=== PATIENT | male | born 1980 | race Caucasian/White ===

== ENCOUNTER → 2019-02-17 | Outpatient (CLI) | payer SELFPAY ==
[2019-02-17 10:05] LABS: Hematocrit 31.7 % (40-54); Hemoglobin 8.7 g/dl (13.0-16.5); Mean Corp Hgb Conc 27.4 g/gl (32-36); Mean Corpuscular Hgb 25.7 pg (27.0-32.0); Mean Corpuscular Volume 93.8 fL (80-94); Mean Platelet Vol. 10.4 fl (6.2-12.0); Platelet Count 157 K/mm3 (150-450); RBC Distribution Width CV 22.3 % (11.6-14.6); RBC Distribution Width SD 73.9 fl (35.1-43.9); Red Blood Count 3.38 M/mm3 (4.6-6.2); White Blood Count 3.3 K/mm3 (4.4-11.0)
[2019-02-17 10:06] LABS: Scan Indicated on CBC? Y/N YES- FLAGS NOTED
[2019-02-17 10:20] LABS: Differential Comment SCANNED
== END | disposition home or self-care (01) ==
LOC: MTLAB 08:00
DX: D50.9 Iron deficiency anemia, unspecified (principal); D51.0 Vitamin B12 deficiency anemia due to intrinsic factor deficiency
CPT/HCPCS: 36415; 85027

== ENCOUNTER 2019-03-25 09:30 | Outpatient (RCR) | payer SELFPAY ==
[2019-03-25 12:17] LABS: Iron 9 ug/dL (65-175)
[2019-03-25 14:34] LABS: Hematocrit 15.4 % (40-54); Mean Corp Hgb Conc 24.7 g/dL (32-36); Mean Corpuscular Hgb 19.8 pg (27.0-32.0); Mean Corpuscular Volume 80.2 fL (80-94); Mean Platelet Vol. 11.8 fl (6.2-12.0); POSITIVE COUNT YES; Platelet Count 112 K/mm3 (150-450); RBC Distribution Width CV 19.9 % (11.6-14.6); RBC Distribution Width SD 58.3 fl (35.1-43.9); Red Blood Count 1.92 M/mm3 (4.6-6.2); White Blood Count 3.1 K/mm3 (4.4-11.0)
[2019-03-25 14:46] LABS: Hemoglobin 3.8 g/dL (13.0-16.5)
[2019-03-25 15:21] LABS: Scan Indicated on CBC? Y/N YES- FLAGS NOTED
[2019-03-25 15:25] LABS: Differential Comment SCANNED
[2019-03-26 09:40] LABS: Pathologist Review Reviewed
== END 2019-04-07 06:40 | disposition home or self-care (01) ==
LOC: MTLAB 09:30
DX: E61.1 Iron deficiency (principal); K90.89 Other intestinal malabsorption
CPT/HCPCS: 36415; 83540; 85027

== ENCOUNTER 2019-04-14 09:52 | Outpatient (RCR) | payer SELFPAY ==
[2019-04-14 12:30] LABS: Hematocrit 24.5 % (40-54); Hemoglobin 5.9 g/dL (13.0-16.5); Mean Corp Hgb Conc 24.1 g/dL (32-36); Mean Corpuscular Hgb 24.6 pg (27.0-32.0); Mean Corpuscular Volume 102.1 fL (80-94); POSITIVE COUNT YES; POSITIVE MORPHOLOGY YES; Platelet Count 99 K/mm3 (150-450); White Blood Count 4.7 K/mm3 (4.4-11.0)
[2019-04-14 12:38] LABS: Scan Indicated on CBC? Y/N YES- FLAGS NOTED
[2019-04-14 13:00] LABS: Iron 114 ug/dL (65-175)
[2019-04-14 14:26] LABS: Pathologist Review Reviewed
== END 2019-04-14 10:52 | disposition home or self-care (01) ==
LOC: MTLAB 09:52
DX: E61.1 Iron deficiency (principal); K90.89 Other intestinal malabsorption
CPT/HCPCS: 36415; 83540; 85027

== ENCOUNTER → 2019-05-03 | Outpatient (CLI) | payer SELFPAY ==
[2019-05-03 13:54] LABS: Hematocrit 30.2 % (40-54); Hemoglobin 8.3 g/dL (13.0-16.5)
[2019-05-03 14:09] LABS: Vitamin B12 358 pg/mL (211-911)
== END | disposition home or self-care (01) ==
LOC: MTLAB 12:18
PROVIDERS: Family Medicine
DX: D50.9 Iron deficiency anemia, unspecified (principal); D51.0 Vitamin B12 deficiency anemia due to intrinsic factor deficiency
CPT/HCPCS: 36415; 82607; 85014; 85018

== ENCOUNTER → 2019-07-22 | Outpatient (CLI) | payer OTHER, SELFPAY ==
[2019-07-22 14:28] LABS: Absolute Lymphocyte Count 0.56 X10^3/uL (0.83-4.51); Absolute Neutrophil Count 3.4 X10^3/uL (2.0-7.7); Basophil# 0.03 X10^3/uL; Basophil% 0.6 % (0-1); Eosinophil# 0.29 X10^3/uL; Eosinophils% 5.9 % (0-5); Hematocrit 28.9 % (40-54); Hemoglobin 7.6 g/dL (13.0-16.5); Lymphocyte # 0.56 X10^3/ul (4.0); Lymphocyte % 11.4 % (19-41); Mean Corp Hgb Conc 26.3 g/dL (32-36); Mean Corpuscular Hgb 22.7 pg (27.0-32.0); Mean Corpuscular Volume 86.3 fL (80-94); Monocyte# 0.56 X10^3/uL; Monocyte% 11.4 % (0-10); NRBC Flagged by Analyzer 0 % (0-5); Neutrophil # 3.42 X10^3/uL (2.7-7.7); Neutrophil % 69.9 % (47-70); POSITIVE COUNT YES; POSITIVE DIFFERENTIAL YES; Platelet Count 83 K/mm3 (150-450); RBC Distribution Width CV 19.6 % (11.6-14.6); RBC Distribution Width SD 62.1 fl (35.1-43.9); Red Blood Count 3.35 M/mm3 (4.6-6.2); White Blood Count 4.9 K/mm3 (4.4-11.0)
[2019-07-22 14:39] LABS: Differential Indicated SCAN CRITERIA MET
[2019-07-22 15:11] LABS: Vitamin B12 380 pg/mL (211-911)
== END | disposition home or self-care (01) ==
LOC: MTLAB 12:07
PROVIDERS: Family Medicine
DX: D50.9 Iron deficiency anemia, unspecified (principal)
CPT/HCPCS: 36415; 82607; 85025

== ENCOUNTER 2020-03-23 14:04 | Inpatient (IN) | payer MEDICAID, SELFPAY ==
[2019-10-12 13:28] VITALS: BMI 16.5
[2020-03-23] VITALS (12 sets, daily range): BP systolic 89–112; BP diastolic 44–83; PULSE 75–85; RESP 16–20; TEMP 36.5–36.9; O2SAT 99–100; BMI 16.3; BMI 15.6
--- NOTE | 2020-03-23 14:29 | EKG12_ITS ---
Test Reason : Blood Pressure : / mmHG Vent. Rate : 076 BPM Atrial Rate : 076 BPM P-R Int : 162 ms QRS Dur : 102 ms QT Int : 408 ms P-R-T Axes : 068 070 058 degrees QTc Int : 459 ms Normal sinus rhythm Minimal voltage criteria for LVH, may be normal variant Borderline ECG Confirmed by KACI PASCAL, ELIO ([id number]), editor farm journal EVELYNE ELLIOTT ([id number]) on 03/27/2020 11:00:02 AM Referred By: MAITE Confirmed By:ELIO CLEMONS MD
--- NOTE | 2020-03-23 14:41 | ED.VIS.GEN ---
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 He just recently moved back from [facility]. He was recently just discharged from the hospital down there for a MSSA staph infection. He recently had his PICC line taken out and completed his antibiotic course. He had a significant drop in his weight and sounds like he was not taking care of himself at home. He dropped from 135 pounds to around 100 pounds. He is currently denying any fevers chills. He has not had any chest pain. Denies any abdominal pain or nausea/vomiting. He has had an increase in his diarrhea. He does have diarrhea at baseline but has been pretty constant. Denies any black tarry stools or blood in the stool. He is concerned that he is anemic. He felt like he did whenever he was last admitted whenever he had a metabolic acidosis and was anemic with a hemoglobin of 3. Past Medical History - Allergies and Home Meds Allergies/Adverse Reactions: Allergies erythromycin base Adverse Reaction (Severe, Verified 03/23/20 14:07) Vomiting Macrolide Antibiotics Adverse Reaction (Severe, Verified 03/23/20 14:07) Vomiting ALL ORAL ANTIBIOTICS Allergy (Uncoded 03/23/20 14:08) NEEDS FOLLOW-UP VIT K Allergy (Uncoded 03/23/20 14:08) Chest tightness Prior records reviewed: Yes Past Medical History: - - Gastroschisis, short bowel syndrome thyroidism, history of iron deficiency anemia Surgical History: - - Small bowel resection, debridement of previous staph infections Smoking Status: Never smoker Review of Systems General: Reports: Malaise, Weight loss. Denies: Chills, Fever, Sweats Eyes: Denies: Visual changes - bilaterally, Diplopia ENT: Denies: Rhinorrhea, Sore throat Cardiovascular: Denies: Chest pain, Palpitations Respiratory: Reports: Dyspnea, Dyspnea on exertion. Denies: Cough Gastrointestinal: Reports: Diarrhea. Denies: Abdominal pain, Nausea, Vomiting, Melena, Hematochezia Genitourinary: Denies: Dysuria, Hematuria, Frequency Musculoskeletal: Denies: Back pain, Extremity Pain Skin: Denies: Rash, Wounds Neurological: Reports: Weakness - Generalized. Denies: Headache, Numbness Physical Exam Vital Signs/Narrative: Vital Signs Temp Pulse Resp BP Pulse Ox 03/23/20 14:05 98 F 85 16 107/67 100 Inital Vital Signs reviewed: No General: Well nourished, Cachectic, No Acute Distress Head: Normocephalic, Atraumatic Eyes: Perrl, EOMI ENT: No rhinorrhea, Dry mucous membranes Neck: Supple, Nontender Cardiovascular: Regular rate, Regular rhythm, No murmurs Respiratory: No distress, CTA bilaterally, Chest nontender Abdomen: Soft, Nontender, Nondistended, Normal bowel sounds Back: Nontender, Normal Inspection Extremities: Nontender, No edema Skin: No rash, - - Patient has many well-healed incisions, on the upper extremities, lower extremities and left buttock. Sutures still in place on the right upper extremity site. Neurological: Alert, Oriented x3, Cranial nerves II-XII grossly intact, Normal Strength, Normal Sensation Psychological: Normal affect, Normal Mood Diagnostic/Tx/Re-eval - EKG Initial EKG Interpretation: - - Rate of 76 bpm in sinus rhythm. Normal intervals. Normal axis. No ST elevations or depressions appreciated. No T wave abnormalities. Prior EKG for comparison was performed on February 092011. - Medical Decision Making Patient presents emerged department for shortness of breath and weakness. He does have complicated past medical history. He is concerned that his kidneys may be shutting down or that he is anemic based on how he is feeling. He denies any fevers or chills. He did recently get over a staph infection but completed the antibiotic course. Vital signs upon arrival are within normal limits. Does not appear in any acute distress. Will check basic lab at this time. Patient not more anemic than he has been before in the past. His CO2 was 7. Did check an ABG at that time which showed a pH of 7.17 with a bicarb of 3.6. We will start him on a bicarb drip at this time. I discussed the patient with the hospitalist and we will plan on ICU admission at this time. He otherwise has been stable throughout ED stay. Patient understands and is agreeable with this plan. ED Disposition - Plan for ED Patient: Disposition: Acute Care Hospital [facility] Diagnosis: Diarrhea, Metabolic acidosis
[2020-03-23 15:05] LABS: Absolute Lymphocyte Count 0.75 X10^3/uL (0.83-4.51); Absolute Neutrophil Count 4.8 X10^3/uL (2.0-7.7); Basophil# 0.05 X10^3/uL; Basophil% 0.7 % (0-1); Eosinophil# 0.32 X10^3/uL; Eosinophils% 4.7 % (0-5); Hematocrit 29.5 % (40-54); Hemoglobin 9.5 g/dL (13.0-16.5); Lymphocyte # 0.75 X10^3/ul (4.0); Lymphocyte % 10.9 % (19-41); Mean Corp Hgb Conc 32.2 g/dL (32-36); Mean Corpuscular Hgb 29.9 pg (27.0-32.0); Mean Corpuscular Volume 92.8 fL (80-94); Mean Platelet Vol. 9.5 fl (6.2-12.0); Monocyte# 0.83 X10^3/uL; Monocyte% 12.1 % (0-10); NRBC Flagged by Analyzer 0 % (0-5); Neutrophil # 4.77 X10^3/uL (2.7-7.7); Neutrophil % 69.7 % (47-70); Platelet Count 117 K/mm3 (150-450); RBC Distribution Width CV 16.7 % (11.6-14.6); RBC Distribution Width SD 56.9 fl (35.1-43.9); Red Blood Count 3.18 M/mm3 (4.6-6.2); White Blood Count 6.9 K/mm3 (4.4-11.0)
--- NOTE | 2020-03-23 15:25 | RAD_ITS ---
STUDY: X-RAY CHEST REASON FOR EXAM: Male, 40 years old. Shortness of breath, diarrhea. TECHNIQUE: Frontal and lateral views of the chest. COMPARISON: None. FINDINGS: The lungs are clear and expanded. There is no demonstrated pleural abnormality. Normal size heart. Normal mediastinum and romie. Normal visualized pulmonary arteries. Normal visualized aortic arch and descending thoracic aorta. Normal visualized thoracic spine. Normal visualized ribs, clavicles, and shoulders. There are distended loops of bowel incompletely seen in the upper abdomen. Findings could represent ileus or obstruction. RAD/Chest PA and Lateral IMPRESSION: Normal x-ray examination of the chest. Electronically Signed: Se Kearns MD at 16:05 EDT , Service support ,
[2020-03-23 15:53] LABS: AST(SGOT) 42 U/L (15-37); Alanine Aminotransfer ALT/SGPT 41 U/L (16-61); Albumin, Serum 3.2 g/dL (3.2-5.0); Alkaline Phosphatase 169 U/L (45-117); Anion Gap 13 (5-15); BUN 91 mg/dL (7-18); BUN/Creat Ratio 55.5 RATIO (10-20); Bilirubin, Direct 0.16 mg/dL (0.00-0.30); Calcium,Total 7.9 mg/dL (8.5-10.1); Chloride 117 mmol/L (98-107); Creatinine, Serum 1.64 mg/dL (0.70-1.30); EST Glomerular Filtration Rate 50 mL/min (>60); Est Glom Filt Rate - Afr Amer 60 mL/min (>60); Estimated Creatinine Clearance 44.23 ml/min; Glucose 90 mg/dL (74-106); Magnesium 1.2 mg/dL (1.6-2.6); Phosphorus 4.9 mg/dL (2.5-4.9); Potassium 3.3 mmol/L (3.5-5.1); Protein, Total 8.2 g/dL (6.4-8.2); Sodium Level 137 mmol/L (136-145)
--- NOTE | 2020-03-23 16:12 | HP.PCM_ITS ---
History of Present Illness Date of Admission: 03/23/20 Chief Complaint: diarrhea The patient is a 40 year old M with a PMH of gastroschisis in childhood, with bowel resection, and short bowel syndrome, as well as recent history of MRSA skin infections, requiring IV cefazolin for ~ 30 days. He was treated in [facility], and subsequently came back to [place] with his parents 2 days ago. He subsequently started having diarrhea and it has been gradually worsening. He has had no fever, chills, nausea or vomiting. He has however been getting progressively weak, and has had previous episodes of metabolic acidosis where he required drip. He is currently supposed to be on bicarb pills per his real estate investment analyst, but has not been compliant. REview of systems was otherwise negative. In the ED, vitals showed temp of 98F, with BP of 107/67, WI of 85 and RR of 16. He was saturating at 100% on room air. Labs shwoed bicarb of 7, anion gap of 13, potassium of 3.3, sodium of 137 and Cr of 1.64. initial troponin was negative. CBC showed Hb of 9.5, wbc of 6.9, and platelets of 117. ABG was pending. He is being admitted and manaaged for acute metabolic acidosis due to severe diarrhea from showrt bowel syndrome. [] Past Medical History Past Medical History (Chronic Problems): Chronic Problems (Last Updated 09/29/19 @ 08:29 by Cintia Ramos) Anemia (Chronic) Hypothyroidism (Chronic) Gastroschisis (Chronic) Iron deficiency (Chronic) Short bowel syndrome (Chronic) B12 deficiency anemia (Chronic) Thrombocytopenia (Chronic) Postresectional malabsorption syndrome (Chronic) Chronic GI bleeding (Chronic) Medical History: Medical History (Last Updated 09/29/19 @ 08:29 by Cintia Ramos) B12 deficiency anemia D51.9 Gastroschisis Q79.3 Iron deficiency anemia D50.9 Short bowel syndrome K91.2 Allergies erythromycin base Adverse Reaction (Severe, Verified 03/23/20 14:07) Vomiting Macrolide Antibiotics Adverse Reaction (Severe, Verified 03/23/20 14:07) Vomiting ALL ORAL ANTIBIOTICS Allergy (Uncoded 03/23/20 14:08) NEEDS FOLLOW-UP VIT K Allergy (Uncoded 03/23/20 14:08) Chest tightness Home Medications: Ambulatory Orders Medication Instructions Recorded Ferric Carboxymaltose [Injectafer] 750 mg IV UD 09/23/19 Levothyroxine Sodium [Unithroid] 75 mcg PO DAILY 09/23/19 Folic Acid 1 mg PO DAILY 09/28/19 Torsemide 60 mg PO BID 03/23/20 Surgical History: Surgical History (Last Reviewed 09/28/19 @ 10:11 by Cintia Ramos) History of abdominal surgery Z98.890 For Gastrochesis as a child [facility] Surgical History: - - Small bowel resection, debridement of previous staph infections Lives: With Family Smoking Status: Never smoker Alcohol: None Drugs: None - *Family History Maternal Family History: Family History (Last Updated 09/28/19 @ 10:11 by Cintia Ramos) Other No pertinent family history Review of Systems Constitutional: Reports: Anorexia, Malaise, Weakness, Fatigue Eyes: Denies: Blurred vision HEENT: Denies: Head Aches, Sinus Congestion, Sinus Drainage Cardiovascular: Denies: Chest Pain, Chest Pressure, Chest Tightness, Palpitations Respiratory: Denies: Cough, Shortness of Breath, Shortness of breath at rest, Shortness of breath upon exertion, Sputum production Gastrointestinal: Reports: Diarrhea. Denies: Abdominal Pain, Nausea, Vomiting Genitourinary: Denies: Dysuria Musculoskeletal: Denies: Joint Pain, Joint Tenderness Skin: Denies: Rash, Wounds Neurological: Denies: Numbness, Tingling, Focal weakness Psychiatric: Denies: Anxiety, Depression, Homicidal Ideations, Suicidal Ideations Hematologic/ Lymphatic: Denies: Easy Bruising, Easy Bleeding VTE Information - Inpt Only VTE Present on Admission: No VTE Pharm Prophylaxis ordered?: Yes Patient Problems: Active and Suspected Problems (Last Updated 09/29/19 @ 08:29 by Cintia Ramos) Diarrhea (Acute) Metabolic acidosis (Acute) - Physical Exam Vitals/I&O's: Vital Signs Temp Pulse Resp BP Pulse Ox 98 F 85 16 107/67 100 03/23/20 15:18 03/23/20 15:18 03/23/20 15:18 03/23/20 15:18 03/23/20 15:18 Oxygen Delivery Method Room Air Weight: 114 lb Body Mass Index (BMI) 16.3 General: Alert, Oriented x3, Cooperative, No apparent distress, Lethargic HEENT: Atraumatic, PERRLA, EOMI, Normocephalic Oral: Dry Mucosa Neck: Supple, No JVD, Negative Carotid Bruits Lungs: Clear to auscultation, Normal air movement, No rhonchi, No wheeze, No rales Cardiovascular: Regular rate, Regular Rhythm, Normal S1, Normal S2, No murmurs Abdomen: Bowel Sounds Present, Soft, Non Tender, Non-Distended Extremities: No clubbing, No cyanosis, No edema, Capillary Refill Less than 3 Seconds Skin: No rashes, No breakdown Musculoskeletal: No Tenderness to Palpation of Joints or Extremities Lymphatic: No Cervical, Supraclavicular, or Inguinal Adenopathy Neurological: Cranial nerves II-XII grossly intact, Neuro grossly intact, Motor Exam 5/5 strength throughout Psych/Mental Status: Normal Affect, Appropriate, Alert and oriented to time, place, person, mood and affect Laboratory Results 03/23/20 14:50: WBC 6.9, RBC 3.18 L, Hgb 9.5 L, Hct 29.5 L, MCV 92.8, MCH 29.9, MCHC 32.2, RDW Std Deviation 56.9 H, RDW Coeff of Emil 16.7 H, Plt Count 117 L, MPV 9.5, Immature Gran % (Auto) 1.900 H, Neut % (Auto) 69.7, Lymph % (Auto) 10.9 L, [place] % (Auto) 12.1 H, Eos % (Auto) 4.7, Baso % (Auto) 0.7, Absolute Neuts (auto) 4.8, Absolute Lymphs (auto) 0.75 L, Nucleated RBC % 0 03/23/20 14:50: Sodium 137, Potassium 3.3 L, Chloride 117 H, Carbon Dioxide 7.0 L*, Anion Gap 13, BUN 91 H, Creatinine 1.64 H, Estim Creat Clear Calc 44.23, Est GFR (MDRD) Af Amer 60, Est GFR (MDRD) Non-Af 50 L, BUN/Creatinine Ratio 55.5 H, Glucose 90, Calcium 7.9 L, Phosphorus 4.9, Magnesium 1.2 L, Total Bilirubin 0.40, Direct Bilirubin 0.16, AST 42 H, ALT 41, Alkaline Phosphatase 169 H, Troponin I < 0.015, Total Protein 8.2, Albumin 3.2, Globulin 5.0 H 03/23/20 14:50: Blood Type Pending, Antibody Screen Pending Diagnostic Data Chest X-Ray 03/23/20 15:25 IMPRESSION: Normal x-ray examination of the chest. Electronically Signed: Se Kearns MD at 16:05 EDT , Service support , Assessment/Plan All Active Problems (Last Updated 09/29/19 @ 08:29 by Cintia Ramos) Diarrhea (Acute) Metabolic acidosis (Acute) 40 y/o admitted with a complaint of diarrhea and lethargy 1. Acute non anion gap metabolic acidosis due to diarrhea * admit to ICU * bicarb is 7, with anion gap of 13; patient has concomitant respiratory alkalosis as well. * ahs been having profuse diarrhea; has recently been on antibiotics, so C DIff needs to be ruled out * hydrate aggressively with IVF * start bicarb drip * ABG showed ph of 7.17, with pCO2 of 9.9 and bcarb of 3.6, * 2. Severe diarrhea due to short gut syndrome * Recently on IV cefazolin for about a month because of MSSA skin infection. * Will check C. difficile. Continue hydrating with IV fluid. If C. difficile comes back negative, then will consider loperamide * 3.Hypokalemia and hypomagnesemia * K is 3.3 and Mg is 1.2 * will replace and monitor * 4. Anemia: Hb is 9.5. will monitor for now. This is actually higher than his baseline of ~ 7-8. 5. History of gastroschisis with short gut syndrome: as under 2' DVT prophylaxis: SCDs Code status: full code * Patient and mother counseled extensively about different types of CODE STATUS including full code, DNR CCA and DNR CCA. Mother elects for patient to be full code. * Total [id number] time 16 minutes. Inpatient E&M: 60933 Init Hosp L3 Procedures: 11594 Critial Care 1st Hr - advanced care planning first 30 mins [id number]
[2020-03-23 16:31] LABS: Bacteria 0 SEEN /hpf (None Seen); Mucous, Urine 0 SEEN /hpf (<or=2+)
--- NOTE | 2020-03-23 16:51 | CPS ---
Critical pH, PCO2, HCO3- and TCO2 results given to Dr. Velazquez. Dr Velazquez personally relayed results to Dr Mansfield. 03-23-20 @ 3410.
[2020-03-23 16:53] LABS: Color, Urine Yellow (Yellow); Glucose, Dipstick Normal (Normal); Ketone-Dipstick Negative (Negative); Leukocyte Esterase-Dipstick Negative /ul (Negative); Nitrite-Dipstick Negative (Negative); Occult Blood-Urine 250 /ul (Negative); Protein-Dipstick 100 mg/dl (Negative); Urine Bilirubin Dipstick Negative (Negative); Urine Clarity Sl. Cloudy (Clear); Urine Urobilinogen Normal (Normal)
[2020-03-23 17:10] LABS: Hyaline Cast 0-5 SEEN /lpf (0-5); Squamous Epithelial Cells - UA 0-5 SEEN /hpf (0-5)
[2020-03-23 17:11] LABS: Fine Granular Cast- Urine 0-5 SEEN /lpf (0-5)
[2020-03-23 17:13] LABS: Amorphous Sediment 2+; Red Blood Cells-Urine 10-25 SEEN /hpf (0-5); White Blood Cells 0-5 SEEN /hpf (0-5)
[2020-03-23 17:36] LABS: Base Excess -25 mmol/L (-2 to +2); Bicarbonate 3.6 mmol/L (22-26); PO2 136 mmHG (75-100); SO2 98 % (95-99); Total Carbon Dioxide < 5 mmol/L; pH 7.17 (7.35-7.45)
[2020-03-23 17:39] LABS: Blood Gas Specimen Type ART; SITE L BRACHIAL
[2020-03-23 17:40] LABS: O2 Delivery Device Room Air; pCO2 9.9 mmHg (35-45)
[2020-03-23] MEDS: 0.9% Normal Saline 1,000 ML 125 ML IV (19:39)
--- NOTE | 2020-03-23 19:45 | NURSING ---
attempted to start another iv but pt refuses at this time. i attempted to check pt skin on admission but pt refuses to take his pants off. Pt c/o feeling cold. heat turn to max and warm blankets given. Attempted 30 min later and pt still refuses to have remove pants
[2020-03-23] MEDS: Potassium Chloride 10mEq/100mL 10 MEQ/100 ML IV.SOLN. 100 MEQ IV BOLUS ×4 (20:06→23:02)
[2020-03-23] MEDS: Magnesium Sulfate 4gm/100mL 4 GM/100 ML IV.SOLN. IV (21:12)
[2020-03-23 21:41] LABS: Anion Gap 14 (5-15); BUN 93 mg/dL (7-18); BUN/Creat Ratio 59.6 RATIO (10-20); Calcium,Total 7.4 mg/dL (8.5-10.1); Chloride 121 mmol/L (98-107); Creatinine, Serum 1.56 mg/dL (0.70-1.30); EST Glomerular Filtration Rate 53 mL/min (>60); Est Glom Filt Rate - Afr Amer 64 mL/min (>60); Estimated Creatinine Clearance 40.73 ml/min; Glucose 114 mg/dL (74-106); Phosphorus 5.1 mg/dL (2.5-4.9); Potassium 2.6 mmol/L (3.5-5.1); Sodium Level 142 mmol/L (136-145)
[2020-03-24] VITALS (26 sets, daily range): BP systolic 95–115; BP diastolic 54–78; PULSE 64–88; RESP 13–22; TEMP 36.4–37.1; O2SAT 98–100
[2020-03-24] MEDS: Potassium Chloride 10mEq/100mL 10 MEQ/100 ML IV.SOLN. 100 MEQ IV BOLUS ×8 (00:06→18:46)
[2020-03-24] MEDS: 0.9% Normal Saline 1,000 ML 125 ML IV (03:39)
[2020-03-24 03:51] LABS: Absolute Lymphocyte Count 0.53 X10^3/uL (0.83-4.51); Absolute Neutrophil Count 2.1 X10^3/uL (2.0-7.7); Basophil# 0.02 X10^3/uL; Basophil% 0.6 % (0-1); Eosinophil# 0.22 X10^3/uL; Eosinophils% 6.4 % (0-5); Hematocrit 18.7 % (40-54); Hemoglobin 6.4 g/dL (13.0-16.5); Lymphocyte # 0.53 X10^3/ul (4.0); Lymphocyte % 15.3 % (19-41); Mean Corp Hgb Conc 34.2 g/dL (32-36); Mean Corpuscular Hgb 30.5 pg (27.0-32.0); Mean Platelet Vol. 9.7 fl (6.2-12.0); Monocyte# 0.56 X10^3/uL; Monocyte% 16.2 % (0-10); NRBC Flagged by Analyzer 0 % (0-5); Neutrophil # 2.09 X10^3/uL (2.7-7.7); Neutrophil % 60.3 % (47-70); POSITIVE DIFFERENTIAL YES; Platelet Count 110 K/mm3 (150-450); RBC Distribution Width CV 16.3 % (11.6-14.6); RBC Distribution Width SD 53.1 fl (35.1-43.9); White Blood Count 3.5 K/mm3 (4.4-11.0)
[2020-03-24 04:40] LABS: Differential Indicated SCAN CRITERIA MET
[2020-03-24 04:42] LABS: Anion Gap 11 (5-15); BUN 83 mg/dL (7-18); Calcium,Total 7.3 mg/dL (8.5-10.1); Chloride 119 mmol/L (98-107); Creatinine, Serum 1.43 mg/dL (0.70-1.30); EST Glomerular Filtration Rate 59 mL/min (>60); Est Glom Filt Rate - Afr Amer 71 mL/min (>60); Estimated Creatinine Clearance 44.44 ml/min; Glucose 88 mg/dL (74-106); Magnesium 2.7 mg/dL (1.6-2.6); Phosphorus 4.3 mg/dL (2.5-4.9); Potassium 2.7 mmol/L (3.5-5.1); Sodium Level 138 mmol/L (136-145)
[2020-03-24] MEDS: Sodium Bicarbonate 8.4% 50 ML Syringe 50 MEQ IV (05:20)
[2020-03-24 05:29] LABS: Differential Comment SCANNED
--- NOTE | 2020-03-24 06:21 | PCM.CON.CC ---
Reason for Consult Date of Consultation: 03/24/20 Reason for Consultation: Metabolic acidosis History of Present Illness: The patient is a 40-year-old male, with a history as outlined below, who presented to the emergency department with generalized malaise, weakness and shortness of breath. Although the patient initially resided in [facility], he has lived in [place] for the last 15 years. He recently relocated back here 2 days ago. Prior to moving back to [place], the patient reported that he was hospitalized in both [place] in [place] for a total of 30 days recently due to staph bacteremia, requiring a prolonged antibiotic course. The patient has a complex medical history including gastroschisis, which required surgical repair leading to short bowel syndrome. The patient reports that he has been dealing with nutritional deficiencies most of his life. He states that he was previously receiving IV iron supplementation. He denies any abdominal pain, nausea or vomiting. He denies hematochezia, hematemesis or melena. On presentation to the emergency department, the patient was noted to be afebrile and hemodynamically stable. He was maintaining appropriate oxygen saturations on room air. Laboratory evaluation revealed a normal white blood cell count. Hemoglobin was initially noted to be 9.5 g/dL. The patient was thrombocytopenic with a platelet count of 117,000. Chemistry profile was notable for a potassium of 3.3, chloride of 117, bicarbonate of 7.0 and creatinine of 1.64. Magnesium was low at 1.2. Troponin was negative. Initial plain film chest x-ray revealed no acute cardiopulmonary process. The patient was placed in isolation for C. difficile rule out. Electrolyte repletion was undertaken. The patient received supplemental IV fluids and bicarbonate replacement. Overnight, the patient has remained afebrile and hemodynamically stable. He reports feeling hungry this morning and is interested in ordering a breakfast. Past Medical History Past Medical History (Chronic Problems): Chronic Problems (Last Updated 09/29/19 @ 08:29 by Cintia Ramos) Anemia (Chronic) Hypothyroidism (Chronic) Gastroschisis (Chronic) Iron deficiency (Chronic) Short bowel syndrome (Chronic) B12 deficiency anemia (Chronic) Thrombocytopenia (Chronic) Postresectional malabsorption syndrome (Chronic) Chronic GI bleeding (Chronic) Medical History: Medical History (Last Updated 09/29/19 @ 08:29 by Cintia Ramos) B12 deficiency anemia D51.9 Gastroschisis Q79.3 Iron deficiency anemia D50.9 Short bowel syndrome K91.2 Allergies erythromycin base Adverse Reaction (Severe, Verified 03/23/20 14:07) Vomiting Macrolide Antibiotics Adverse Reaction (Severe, Verified 03/23/20 14:07) Vomiting ALL ORAL ANTIBIOTICS Allergy (Uncoded 03/23/20 14:08) NEEDS FOLLOW-UP VIT K Allergy (Uncoded 03/23/20 14:08) Chest tightness Home Medications: Ambulatory Orders Medication Instructions Recorded Ferric Carboxymaltose [Injectafer] 750 mg IV UD 09/23/19 Levothyroxine Sodium [Unithroid] 75 mcg PO DAILY 09/23/19 Folic Acid 1 mg PO DAILY 09/28/19 Torsemide 60 mg PO BID 03/23/20 Surgical History: Surgical History (Last Reviewed 09/28/19 @ 10:11 by Cintia Ramos) History of abdominal surgery Z98.890 For Gastrochesis as a child [facility] History: - - Small bowel resection, debridement of previous staph infections Lives: With Family Smoking Status: Never smoker Alcohol: None Drugs: None - *Family History Maternal Family History: Family History (Last Updated 09/28/19 @ 10:11 by Cintia Ramos) Other No pertinent family history Review of Systems Constitutional: Reports: Malaise, Weakness. Denies: Chills, Fever Eyes: Denies: Blurred vision, Double vision HEENT: Denies: Head Aches, Sinus Congestion, Sinus Drainage Cardiovascular: Denies: Chest Pain, Palpitations Respiratory: Reports: Shortness of Breath. Denies: Cough, Sputum production, Wheezing Gastrointestinal: Reports: Diarrhea. Denies: Abdominal Pain, Nausea, Vomiting Genitourinary: Denies: Dysuria Musculoskeletal: Denies: Joint Pain, Joint Tenderness Skin: Reports: Wounds - Healing wounds present on extremities Neurological: Denies: Numbness, Tingling, Focal weakness Psychiatric: Denies: Anxiety, Depression, Homicidal Ideations, Suicidal Ideations Hematologic/ Lymphatic: Reports: Anemia, Hx of blood transfusion Patient Problems: Active and Suspected Problems (Last Updated 09/29/19 @ 08:29 by Cintia Ramos) Diarrhea (Acute) Metabolic acidosis (Acute) Objective: The patient's most recent lab work, culture data and imaging studies have all been personally reviewed. C. difficile was negative. Enteric panel is pending. - Physical Exam Vitals/I&O's: Vital Signs Temp Pulse Resp BP Pulse Ox 98.8 F 75 17 98/60 100 03/24/20 03:00 03/24/20 06:00 03/24/20 06:00 03/24/20 06:00 03/24/20 06:00 Oxygen Delivery Method Room Air Weight: 105 lb 6.095 oz Body Mass Index (BMI) 15.6 Intake and Output for Last 24 Hours 03/22/20 03/23/20 03/24/20 23:59 23:59 23:59 Intake Total 850 / 1090 3330 / 3330 Output Total 1200 / 1200 Balance 850 / 290 2130 / 2130 General: Alert, Cooperative, - - Frail, fatigued and cachectic in appearance HEENT: Atraumatic, Normocephalic Oral: Dry Mucosa Neck: Supple, No Nodes, Trachea Midline Lungs: Normal air movement, No rhonchi, No wheeze, No rales Cardiovascular: Regular rate, Regular Rhythm Abdomen: Bowel Sounds Present, Soft, Non Tender Extremities: No clubbing, No cyanosis, No edema Skin: No breakdown Musculoskeletal: No Tenderness to Palpation of Joints or Extremities, Muscle Wasting Lymphatic: No Cervical, Supraclavicular, or Inguinal Adenopathy Neurological: Neuro grossly intact Psych/Mental Status: Flat Affect Labs (Last 48 Hours) 03/23/20 03/23/20 03/23/20 14:50 14:50 14:50 WBC 6.9 RBC 3.18 L Hgb 9.5 L Hct 29.5 L MCV 92.8 MCH 29.9 MCHC 32.2 RDW Std Deviation 56.9 H RDW Coeff of Emil 16.7 H Plt Count 117 L MPV 9.5 Immature Gran % (Auto) 1.900 H Neut % (Auto) 69.7 Lymph % (Auto) 10.9 L [place] % (Auto) 12.1 H Eos % (Auto) 4.7 Baso % (Auto) 0.7 Absolute Neuts (auto) 4.8 Absolute Lymphs (auto) 0.75 L Nucleated RBC % 0 Differential Comment Diff Path Review Specimen Type Sample Site pH Bicarbonate Actual POC Total CO2 Base Excess O2 Saturation ABG pCO2 ABG pO2 Mert Test O2 Delivery Device Blood Gas Notified Whom Sodium 137 Potassium 3.3 L Chloride 117 H Carbon Dioxide 7.0 L* Anion Gap 13 BUN 91 H Creatinine 1.64 H Estim Creat Clear Calc 44.23 Est GFR (MDRD) Af Amer 60 Est GFR (MDRD) Non-Af 50 L BUN/Creatinine Ratio 55.5 H Glucose 90 Calcium 7.9 L Phosphorus 4.9 Magnesium 1.2 L Total Bilirubin 0.40 Direct Bilirubin 0.16 AST 42 H ALT 41 Alkaline Phosphatase 169 H Troponin I < 0.015 Total Protein 8.2 Albumin 3.2 Globulin 5.0 H Urine Color Urine Clarity Urine pH Ur Specific [place] Urine Protein Urine Glucose (UA) Urine Ketones Urine Occult Blood Urine Nitrite Urine Bilirubin Urine Urobilinogen Ur Leukocyte Esterase Urine RBC Urine WBC Ur Squamous Epith Cells Amorphous Sediment Urine Bacteria Hyaline Casts Fine Granular Casts Urine Mucus Stl Giardia Antigen Blood Type O POSITIVE Antibody Screen NEGATIVE Crossmatch 03/23/20 03/23/20 03/23/20 14:50 16:15 16:41 WBC RBC Hgb Hct MCV MCH MCHC RDW Std Deviation RDW Coeff of Emil Plt Count MPV Immature Gran % (Auto) Neut % (Auto) Lymph % (Auto) [place] % (Auto) Eos % (Auto) Baso % (Auto) Absolute Neuts (auto) Absolute Lymphs (auto) Nucleated RBC % Differential Comment Diff Path Review Specimen Type ART Sample Site L BRACHIAL pH 7.17 L* Bicarbonate Actual 3.6 L POC Total CO2 < 5 Base Excess -25 L O2 Saturation 98 ABG pCO2 9.9 L* ABG pO2 136 H Mert Test NA O2 Delivery Device Room Air Blood Gas Notified Whom ED Sodium Potassium Chloride Carbon Dioxide Anion Gap BUN Creatinine Estim Creat Clear Calc Est GFR (MDRD) Af Amer Est GFR (MDRD) Non-Af BUN/Creatinine Ratio Glucose Calcium Phosphorus Magnesium Total Bilirubin Direct Bilirubin AST ALT Alkaline Phosphatase Troponin I Total Protein Albumin Globulin Urine Color Yellow Urine Clarity Sl. Cloudy Urine pH 6.0 Ur Specific [place] 1.010 Urine Protein 100 H Urine Glucose (UA) Normal Urine Ketones Negative Urine Occult Blood 250 H Urine Nitrite Negative Urine Bilirubin Negative Urine Urobilinogen Normal Ur Leukocyte Esterase Negative Urine RBC 10-25 SEEN Urine WBC 0-5 SEEN Ur Squamous Epith Cells 0-5 SEEN Amorphous Sediment 2+ Urine Bacteria 0 SEEN Hyaline Casts 0-5 SEEN Fine Granular Casts 0-5 SEEN Urine Mucus 0 SEEN Stl Giardia Antigen Blood Type Antibody Screen Crossmatch See Detail 03/23/20 03/24/20 03/24/20 21:00 00:10 03:36 WBC 3.5 L RBC 2.10 L Hgb 6.4 L Hct 18.7 L MCV 89.0 MCH 30.5 MCHC 34.2 D RDW Std Deviation 53.1 H RDW Coeff of Emil 16.3 H Plt Count 110 L MPV 9.7 Immature Gran % (Auto) 1.200 H Neut % (Auto) 60.3 Lymph % (Auto) 15.3 L [place] % (Auto) 16.2 H Eos % (Auto) 6.4 H Baso % (Auto) 0.6 Absolute Neuts (auto) 2.1 Absolute Lymphs (auto) 0.53 L Nucleated RBC % 0 Differential Comment SCANNED Diff Path Review May foll Specimen Type Sample Site pH Bicarbonate Actual POC Total CO2 Base Excess O2 Saturation ABG pCO2 ABG pO2 Mert Test O2 Delivery Device Blood Gas Notified Whom Sodium 142 Potassium 2.6 L* Chloride 121 H Carbon Dioxide 7.0 L* Anion Gap 14 BUN 93 H Creatinine 1.56 H Estim Creat Clear Calc 40.73 Est GFR (MDRD) Af Amer 64 Est GFR (MDRD) Non-Af 53 L BUN/Creatinine Ratio 59.6 H Glucose 114 H Calcium 7.4 L Phosphorus 5.1 H Magnesium Total Bilirubin Direct Bilirubin AST ALT Alkaline Phosphatase Troponin I Total Protein Albumin Globulin Urine Color Urine Clarity Urine pH Ur Specific [place] Urine Protein Urine Glucose (UA) Urine Ketones Urine Occult Blood Urine Nitrite Urine Bilirubin Urine Urobilinogen Ur Leukocyte Esterase Urine RBC Urine WBC Ur Squamous Epith Cells Amorphous Sediment Urine Bacteria Hyaline Casts Fine Granular Casts Urine Mucus Stl Giardia Antigen Pending Blood Type Antibody Screen Crossmatch 03/24/20 03:36 WBC RBC Hgb Hct MCV MCH MCHC RDW Std Deviation RDW Coeff of Emil Plt Count MPV Immature Gran % (Auto) Neut % (Auto) Lymph % (Auto) [place] % (Auto) Eos % (Auto) Baso % (Auto) Absolute Neuts (auto) Absolute Lymphs (auto) Nucleated RBC % Differential Comment Diff Path Review Specimen Type Sample Site pH Bicarbonate Actual POC Total CO2 Base Excess O2 Saturation ABG pCO2 ABG pO2 Mert Test O2 Delivery Device Blood Gas Notified Whom Sodium 138 Potassium 2.7 L* Chloride 119 H Carbon Dioxide 8.0 L* Anion Gap 11 BUN 83 H Creatinine 1.43 H Estim Creat Clear Calc 44.44 Est GFR (MDRD) Af Amer 71 Est GFR (MDRD) Non-Af 59 L BUN/Creatinine Ratio 58.0 H Glucose 88 Calcium 7.3 L Phosphorus 4.3 Magnesium 2.7 H Total Bilirubin Direct Bilirubin AST ALT Alkaline Phosphatase Troponin I Total Protein Albumin Globulin Urine Color Urine Clarity Urine pH Ur Specific [place] Urine Protein Urine Glucose (UA) Urine Ketones Urine Occult Blood Urine Nitrite Urine Bilirubin Urine Urobilinogen Ur Leukocyte Esterase Urine RBC Urine WBC Ur Squamous Epith Cells Amorphous Sediment Urine Bacteria Hyaline Casts Fine Granular Casts Urine Mucus Stl Giardia Antigen Blood Type Antibody Screen Crossmatch Microbiology 03/24/20 00:10 Stool C. difficile DNA Amplification - Final Clinical Impression(s) from Imaging Studies Chest X-Ray 03/23/20 15:25 IMPRESSION: Normal x-ray examination of the chest. Electronically Signed: Se Kearns MD at 16:05 EDT , Service support , Current Medications Acetaminophen (Tylenol) 650 mg PO Q6H PRN PRN PRN Reason: Pain Score 1-10/Temp > 100.7 F Dextrose (D50w Syringe) 0 gm IV X1 PRN; Protocol PRN Reason: Hypoglycemia Glucagon () 1 mg IM .X1 PRN PRN Reason: Hypoglycemia Sodium Chloride () 1,000 mls @ 125 mls/hr IV .Q8H [facility] Stop: 03/24/20 18:18 Last Admin: 03/24/20 03:39 Dose: 125 mls/hr Documented by: Potassium Chloride () 10 meq in 100 mls @ 100 mls/hr IV BOLUS Q1H [facility] Stop: 03/24/20 08:59 Nutritional Formula (Lactose Free) (Ensure Clear) 120 ml PO TIDCM [facility] Ondansetron HCl (Zofran) 4 mg IV Q8H PRN PRN PRN Reason: NAUSEA/VOMITING Sodium Chloride () 10 - 40 ml IV UD PRN PRN Reason: SALINE FLUSH Assessment/Plan Active and Suspected Problems (Last Updated 09/29/19 @ 08:29 by Cintia Ramos) Diarrhea (Acute) Metabolic acidosis (Acute) RECOMMENDATIONS: 1. Transition from normal saline to lactated Ringer's with potassium supplementation. 2. Continue aggressive IV fluid replacement to offset GI losses. 3. Aggressive electrolyte repletion. 4. Start Protonix twice daily. 5. Start loperamide scheduled to decrease GI transit time. 6. Transfuse 2 units of packed red blood cells. Check H&H posttransfusion. 7. Nutrition and physical therapy consultations. 8. Check TSH. IMPRESSIONS: 1. Metabolic acidosis likely secondary to GI losses in the setting of short bowel syndrome The patient will be transition from normal saline to lactated Ringer's with potassium supplementation to offset ongoing GI losses. Protonix and loperamide will be started. C. difficile work-up was negative. The patient's diet will be advanced this morning. Nutrition consultation is pending, given underlying malnutrition status. The patient ideally needs to be set up with a senior quality technician to help manage his short bowel syndrome and nutritional deficiencies. If the patient is unable to tolerate p.o. intake and continues to have significant GI losses, he may need to be considered again for vascular access placement to facilitate TPN administration. This may best be served at a tertiary care facility with the GI coverage. 2. Acute kidney injury Likely prerenal in etiology and related to ongoing GI losses and subsequent intravascular volume depletion. Anticipate improvement with volume expansion. Continue to monitor urine output for now. No current indication for renal replacement therapy. 3. Hypokalemia Again, likely secondary to GI losses. Electrolyte repletion is underway. Recheck levels status post repletion. 4. Normocytic anemia I suspect the patient's anemia is likely secondary to nutritional deficiencies and resultant poor iron stores, as opposed to an occult GI bleed. The patient is going to be transfused 2 units of packed red blood cells. Check H&H posttransfusion. He apparently regularly receives Injectafer as an outpatient. Protonix twice daily will also be started. 5. Hypothyroidism/protein calorie malnutrition/generalized weakness Complicates care, management, recovery and prognosis. Check TSH level but continue home levothyroxine dose. Nutrition and physical therapy to evaluate the patient today. This note was generated with [employer] software. It may contain incorrect words, spelling, and punctuation that were not noted in checking the note before signing. Inpatient E&M: 42005 Init Hosp L3
--- NOTE | 2020-03-24 07:17 | PN_ITS ---
Patient Problems: Active and Suspected Problems (Last Updated 09/29/19 @ 08:29 by Cintia Ramos) Diarrhea (Acute) Metabolic acidosis (Acute) Reason for Visit: Diarrhea Subjective: Patient is a 40-year-old gentleman with history of short gut syndrome following history of gastroschisis as a kid who presented with diarrhea and lethargy Patient was found to have acute non-anion gap metabolic acidosis with electrolyte abnormalities including hypokalemia and hypomagnesemia admitted to the intensive care unit where patient is currently being managed Objective: GENERAL: cooperative HEENT: Atraumatic; EYES; Anicteric, Normal Conjunctiva NECK; supple, normal thyroid, RESPIRATORY: Diminished to auscultation CARDIOVASCULAR: Regular S1 S2, GI: soft, normoactive bowel sounds, : No Renal angle tenderness; EXTREMITIES: No edema, no clubbing, MUSCULOSKELETAL: no muscle waisting NEURO: Awake; no lateralizing signs. SKIN: No Rash PSYCH; Flat affect Vitals/I&O's: Vital Signs Temp Pulse Resp BP Pulse Ox 98.5 F 81 16 106/64 100 03/24/20 07:07 03/24/20 07:07 03/24/20 07:07 03/24/20 07:07 03/24/20 07:07 Oxygen Delivery Method Room Air Weight: 47.8 kg Body Mass Index (BMI) 15.6 Intake and Output for Last 24 Hours 03/22/20 03/23/20 03/24/20 23:59 23:59 23:59 Intake Total 850 / 1090 3850.83 / 3850.83 Output Total 2200 / 2200 Balance 850 / 290 1650.83 / 1650.83 Microbiology Past 72 Hours 03/24/20 00:10 Stool C. difficile DNA Amplification - Final Laboratory Results 03/23/20 14:50: WBC 6.9, RBC 3.18 L, Hgb 9.5 L, Hct 29.5 L, MCV 92.8, MCH 29.9, MCHC 32.2, RDW Std Deviation 56.9 H, RDW Coeff of Emil 16.7 H, Plt Count 117 L, MPV 9.5, Immature Gran % (Auto) 1.900 H, Neut % (Auto) 69.7, Lymph % (Auto) 10.9 L, [place] % (Auto) 12.1 H, Eos % (Auto) 4.7, Baso % (Auto) 0.7, Absolute Neuts (auto) 4.8, Absolute Lymphs (auto) 0.75 L, Nucleated RBC % 0 03/23/20 14:50: Sodium 137, Potassium 3.3 L, Chloride 117 H, Carbon Dioxide 7.0 L*, Anion Gap 13, BUN 91 H, Creatinine 1.64 H, Estim Creat Clear Calc 44.23, Est GFR (MDRD) Af Amer 60, Est GFR (MDRD) Non-Af 50 L, BUN/Creatinine Ratio 55.5 H, Glucose 90, Calcium 7.9 L, Phosphorus 4.9, Magnesium 1.2 L, Total Bilirubin 0.40, Direct Bilirubin 0.16, AST 42 H, ALT 41, Alkaline Phosphatase 169 H, Troponin I < 0.015, Total Protein 8.2, Albumin 3.2, Globulin 5.0 H 03/23/20 14:50: Blood Type O POSITIVE, Antibody Screen NEGATIVE 03/23/20 14:50: Crossmatch See Detail 03/23/20 16:15: Urine Color Yellow, Urine Clarity Sl. Cloudy, Urine pH 6.0, Ur Specific [place] 1.010, Urine Protein 100 H, Urine Glucose (UA) Normal, Urine Ketones Negative, Urine Occult Blood 250 H, Urine Nitrite Negative, Urine Bilirubin Negative, Urine Urobilinogen Normal, Ur Leukocyte Esterase Negative, Urine RBC 10-25 SEEN, Urine WBC 0-5 SEEN, Ur Squamous Epith Cells 0-5 SEEN, Amorphous Sediment 2+, Urine Bacteria 0 SEEN, Hyaline Casts 0-5 SEEN, Fine Granular Casts 0-5 SEEN, Urine Mucus 0 SEEN 03/23/20 16:41: Specimen Type ART, Sample Site L BRACHIAL, pH 7.17 L*, Bicarbonate Actual 3.6 L, POC Total CO2 < 5, Base Excess -25 L, O2 Saturation 98, ABG pCO2 9.9 L*, ABG pO2 136 H, Mert Test NA, O2 Delivery Device Room Air, Blood Gas Notified Whom ED 03/23/20 21:00: Sodium 142, Potassium 2.6 L*, Chloride 121 H, Carbon Dioxide 7.0 L*, Anion Gap 14, BUN 93 H, Creatinine 1.56 H, Estim Creat Clear Calc 40.73, Est GFR (MDRD) Af Amer 64, Est GFR (MDRD) Non-Af 53 L, BUN/Creatinine Ratio 59.6 H, Glucose 114 H, Calcium 7.4 L, Phosphorus 5.1 H 03/24/20 00:10: Stl Giardia Antigen Pending 03/24/20 03:36: WBC 3.5 L, RBC 2.10 L, Hgb 6.4 L, Hct 18.7 L, MCV 89.0, MCH 30.5, MCHC 34.2 D, RDW Std Deviation 53.1 H, RDW Coeff of Emil 16.3 H, Plt Count 110 L, MPV 9.7, Immature Gran % (Auto) 1.200 H, Neut % (Auto) 60.3, Lymph % (Auto) 15.3 L, [place] % (Auto) 16.2 H, Eos % (Auto) 6.4 H, Baso % (Auto) 0.6, Absolute Neuts (auto) 2.1, Absolute Lymphs (auto) 0.53 L, Nucleated RBC % 0, Differential Comment SCANNED, Diff Path Review January03/24/20 03:36: Sodium 138, Potassium 2.7 L*, Chloride 119 H, Carbon Dioxide 8.0 L*, Anion Gap 11, BUN 83 H, Creatinine 1.43 H, Estim Creat Clear Calc 44.44, Est GFR (MDRD) Af Amer 71, Est GFR (MDRD) Non-Af 59 L, BUN/Creatinine Ratio 58.0 H, Glucose 88, Calcium 7.3 L, Phosphorus 4.3, Magnesium 2.7 H Current Medications Acetaminophen (Tylenol) 650 mg PO Q6H PRN PRN PRN Reason: Pain Score 1-10/Temp > 100.7 F Dextrose (D50w Syringe) 0 gm IV X1 PRN; Protocol PRN Reason: Hypoglycemia Glucagon () 1 mg IM .X1 PRN PRN Reason: Hypoglycemia Potassium Chloride () 10 meq in 100 mls @ 100 mls/hr IV BOLUS Q1H [facility] Stop: 03/24/20 08:59 Potassium Chloride 40 meq/ (Lactated Ringer's) 1,020 mls @ 150 mls/hr IV .Q6 H48M [facility] Pantoprazole Sodium 40 mg/ (Sodium Chloride) 110 mls @ 330 mls/hr IV Q12 [facility] Loperamide HCl (Imodium Liquid) 2 mg PO Q4H PRN PRN PRN Reason: DIARRHEA/LOOSE STOOLS Nutritional Formula (Lactose Free) (Ensure Clear) 120 ml PO TIDCM [facility] Ondansetron HCl (Zofran) 4 mg IV Q8H PRN PRN PRN Reason: NAUSEA/VOMITING Sodium Chloride () 10 - 40 ml IV UD PRN PRN Reason: SALINE FLUSH STROKE Vital Signs/Narrative: Vital Signs Temp Pulse Resp BP BP Pulse Ox 03/24/20 07:07 98.5 F 81 16 106/64 100 03/24/20 06:54 98.4 F 78 19 H 107/61 100 03/24/20 06:00 75 17 98/60 100 03/24/20 05:00 85 22 H 105/63 100 03/24/20 04:00 78 15 100/54 L 98 Medical Necessity - Tobacco Use Smoking Status: Never smoker Assessment/Plan All Active Problems (Last Updated 09/29/19 @ 08:29 by Cinita Ramos) Diarrhea (Acute) Metabolic acidosis (Acute) Patient is a 40-year-old gentleman with history of short gut syndrome following history of gastroschisis as a kid who presented with diarrhea and lethargy Patient was found to have acute non-anion gap metabolic acidosis with electrolyte abnormalities including hypokalemia and hypomagnesemia admitted to the intensive care unit where patient is currently being managed 1. Acute diarrhea secondary to short gut syndrome ?With subsequent electrolyte abnormalities. With patient having recently been treated with antibiotics stool samples were sent to rule out C. difficile 2. Acute noniron gap metabolic acidosis ?Patient being managed with IV fluids as well as bicarb drip with serial monitoring of electrolytes 3. Hypokalemia ?Repleted per protocol 4. Hypomagnesemia corrected per protocol 5. Recent skin infection with MSSA ?Patient was treated with cefazolin for a month in [place], [place] 6. Anemia ?Do suspect anemia of chronic disorder patient hemoglobin did drop significantly from 9.5 on admission to 6.4. Plan is to transfuse to keep patient hemoglobin above 7 7. History of gastroschisis with subsequent short gut syndrome -Had a discussion with patient's mom who initially wanted patient transferred to tertiary care center however she changed her mind and insisted on patient staying in the hospital for his electrolyte abnormalities to be corrected. She plans to take patient as outpatient to be evaluated by gastroenterology 8. Severe protein calorie malnutrition as evidenced by muscle wasting as well as low BMI ?Consult placed to dietitian 9. DVT prophylaxis ?Bilateral SCDs
[2020-03-24 07:57] LABS: Ferritin 159 ng/mL (26-388); Iron 69 ug/dL (65-175); Iron Binding Capacity,Total 260 ug/dL (250-450); PERCENT IRON SATURATION 26.5 % (15.0-55.0)
--- NOTE | 2020-03-24 09:50 | CASEMGMT ---
RN CM Face to Face with patient for initial transition planning/care coordination assessment. RN CM introduced self and role at [facility]. Patient lying in bed, alert and oriented. Patient willing to participate in assessment and is able to answer all questions appropriately. Care providers, pharmacy, and demographics verified. Patient wishes to discharge home, denies need for home health at this time. Patient states he has no further needs or concerns at this time. CM to follow for discharge planning needs that may arise. PCP: No PCP, list of PCP in-network with insurance provided to patient Specialists: List of GI specialist in-network with patient's insurance provided Preferred [facility]acy: [facility] Insurance: [employer] Prescription Benefit: yes Living Will/HPOA: none LNOK: mother Living Arrangements: Patient lives with mother in 1 story home with 1 step to enter. Patient states he is independent at home. Transportation: mother DME/HHC: Patient denies HHC or DME needs Disposition Plan: Patient to discharge home with family support and follow-up plans in place. Katey VARGASN, RN, CM
--- NOTE | 2020-03-24 10:19 | NURSING ---
0800 This RN discussed with pt about potential placement of PICC or midline insertion per physician orders due to multiple continuous and intermittent IV medication requirements as well as PRBC transufusion. Education on safety and clinical status provided. Pt stated I will think about it and let you know. 0815 This RN was called into pt's room to discuss with patient and his mother about PICC or midline placement per physician orders. Pt's mother stated He had a midline placed at [facility] and just had it taken out a few years ago. I think he needs another port. This RN explained to pt's mother via telephone that a chest port would have to be authorized by a physician and this RN explained need for intravenous access in the short term for PRBC and IV medication infusions such as, Protonix, Potassium, Lactated Ringers with KCl. Pt and his mother agreed to decline midline or PICC line insertion at this time. electronic equipment trades worker service notified. Pt's decision reported to Dr. Bret Acosta. Pt's mother requested to speak with Dr. Acosta over the telephone. 1000 Dr. Acosta notified this RN that he was able to speak with pt's mother regarding patient's care and plan of care.
--- NOTE | 2020-03-24 10:26 | CASEMGMT ---
Tertiary Facilities in-network with patient's insurance: [facility], [facility], [facility], [facility], [facility], [place], [facility], [place], [facility], and [place].
[2020-03-24 12:30] LABS: Pathologist Review Reviewed
[2020-03-24 14:12] LABS: Hemoglobin 10.2 g/dL (13.0-16.5)
[2020-03-24 14:34] LABS: Anion Gap 8 (5-15); BUN 70 mg/dL (7-18); Calcium,Total 7.4 mg/dL (8.5-10.1); Chloride 122 mmol/L (98-107); Creatinine, Serum 1.43 mg/dL (0.70-1.30); EST Glomerular Filtration Rate 59 mL/min (>60); Est Glom Filt Rate - Afr Amer 71 mL/min (>60); Estimated Creatinine Clearance 46.89 ml/min; Glucose 106 mg/dL (74-106); Potassium 3.2 mmol/L (3.5-5.1); Sodium Level 140 mmol/L (136-145)
--- NOTE | 2020-03-24 16:44 | CON.PCM_ITS ---
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 He was treated in [place], and subsequently came back to [place] with his parents 2 days ago. He subsequently started having diarrhea and it has been gradually worsening. He has had no fever, chills, nausea or vomiting. He has however been getting progressively weak, and has had previous episodes of metabolic acidosis where he required drip. He is currently supposed to be on bicarb pills per his shoe stamper, but has not been compliant. REview of systems was otherwise negative - Allergies Allergies: Allergies erythromycin base Adverse Reaction (Severe, Verified 03/23/20 14:07) Vomiting Macrolide Antibiotics Adverse Reaction (Severe, Verified 03/23/20 14:07) Vomiting ALL ORAL ANTIBIOTICS Allergy (Uncoded 03/23/20 14:08) NEEDS FOLLOW-UP VIT K Allergy (Uncoded 03/23/20 14:08) Chest tightness - Current Medications Current Medications: Current Medications Acetaminophen (Tylenol) 650 mg PO Q6H PRN PRN PRN Reason: Pain Score 1-10/Temp > 100.7 F Dextrose (D50w Syringe) 0 gm IV X1 PRN; Protocol PRN Reason: Hypoglycemia Glucagon () 1 mg IM .X1 PRN PRN Reason: Hypoglycemia Potassium Chloride 40 meq/ (Lactated Ringer's) 1,020 mls @ 150 mls/hr IV .Q6H48M [facility] Last Admin: 03/24/20 14:08 Dose: Not Given Documented by: Pantoprazole Sodium 40 mg/ (Sodium Chloride) 110 mls @ 330 mls/hr IV Q12 [facility] Last Infusion: 03/24/20 13:59 Dose: Infused Documented by: Potassium Chloride () 10 meq in 100 mls @ 100 mls/hr IV BOLUS Q1H [facility] Stop: 03/24/20 18:29 Last Admin: 03/24/20 15:55 Dose: 100 mls/hr Documented by: Loperamide HCl (Imodium Liquid) 2 mg PO Q4H PRN PRN PRN Reason: DIARRHEA/LOOSE STOOLS Last Admin: 03/24/20 10:46 Dose: 2 mg Documented by: Ondansetron HCl (Zofran) 4 mg IV Q8H PRN PRN PRN Reason: NAUSEA/VOMITING Sodium Chloride () 10 - 40 ml IV UD PRN PRN Reason: SALINE FLUSH - Past Medical History Past Medical History (Chronic Problems): Chronic Problems (Last Updated 09/29/19 @ 08:29 by Cintia Ramos) Anemia (Chronic) Hypothyroidism (Chronic) Gastroschisis (Chronic) Iron deficiency (Chronic) Short bowel syndrome (Chronic) B12 deficiency anemia (Chronic) Thrombocytopenia (Chronic) Postresectional malabsorption syndrome (Chronic) Chronic GI bleeding (Chronic) - Past Surgical History Surgical History: - - Small bowel resection, debridement of previous staph infections - Social History Smoking Status: Never smoker Alcohol: None Drugs: None - Family History Maternal Family History: Family History (Last Updated 09/28/19 @ 10:11 by Cintia Ramos) Other No pertinent family history Patient Problems: Active and Suspected Problems (Last Updated 09/29/19 @ 08:29 by Cintia Ramos) Diarrhea (Acute) Metabolic acidosis (Acute) - Physical Exam Vitals/I&O's: Vital Signs Temp Pulse Resp BP Pulse Ox 97.6 F L 80 18 114/65 100 03/24/20 15:48 03/24/20 16:10 03/24/20 15:48 03/24/20 15:48 03/24/20 15:48 Oxygen Delivery Method Room Air Weight: 47.8 kg Body Mass Index (BMI) 15.6 Intake and Output for Last 24 Hours 03/22/20 03/23/20 03/24/20 23:59 23:59 23:59 Intake Total 850 / 1090 5340.83 / 5340.83 Output Total 2800 / 2800 Balance 850 / 290 2540.83 / 2540.83 General: Alert, Oriented x3, Cooperative HEENT: Atraumatic, PERRLA, EOMI, Normocephalic Neck: Supple, No JVD, Negative Carotid Bruits Lungs: Clear to auscultation, Normal air movement Cardiovascular: Regular rate, No murmurs Abdomen: Bowel Sounds Present, Soft, Non Tender Extremities: No edema, Capillary Refill Less than 3 Seconds Skin: No rashes, No breakdown Musculoskeletal: No Tenderness to Palpation of Joints or Extremities Neurological: Cranial nerves II-XII grossly intact Psych/Mental Status: Normal Affect, Appropriate Microbiology Past 72 Hours 03/24/20 00:10 Stool Enteric Bacteriology - Final 03/24/20 00:10 Stool Stool Occult Blood (APPLE) - Final Occult Blood Positive 03/24/20 00:10 Stool C. difficile DNA Amplification - Final Laboratory Results 03/23/20 14:50: Crossmatch See Detail 03/23/20 16:15: Urine Color Yellow, Urine Clarity Sl. Cloudy, Urine pH 6.0, Ur Specific [place] 1.010, Urine Protein 100 H, Urine Glucose (UA) Normal, Urine Ketones Negative, Urine Occult Blood 250 H, Urine Nitrite Negative, Urine Bilirubin Negative, Urine Urobilinogen Normal, Ur Leukocyte Esterase Negative, Urine RBC 10-25 SEEN, Urine WBC 0-5 SEEN, Ur Squamous Epith Cells 0-5 SEEN, Amorphous Sediment 2+, Urine Bacteria 0 SEEN, Hyaline Casts 0-5 SEEN, Fine Granular Casts 0-5 SEEN, Urine Mucus 0 SEEN 03/23/20 16:41: Specimen Type ART, Sample Site L BRACHIAL, pH 7.17 L*, Bicarbonate Actual 3.6 L, POC Total CO2 < 5, Base Excess -25 L, O2 Saturation 98, ABG pCO2 9.9 L*, ABG pO2 136 H, Mert Test NA, O2 Delivery Device Room Air, Blood Gas Notified Whom ED 03/23/20 21:00: Sodium 142, Potassium 2.6 L*, Chloride 121 H, Carbon Dioxide 7.0 L*, Anion Gap 14, BUN 93 H, Creatinine 1.56 H, Estim Creat Clear Calc 40.73, Est GFR (MDRD) Af Amer 64, Est GFR (MDRD) Non-Af 53 L, BUN/Creatinine Ratio 59.6 H, Glucose 114 H, Calcium 7.4 L, Phosphorus 5.1 H 03/24/20 00:10: Stl Giardia Antigen Pending 03/24/20 03:30: Free T4 0.60 L 03/24/20 03:36: WBC 3.5 L, RBC 2.10 L, Hgb 6.4 L, Hct 18.7 L, MCV 89.0, MCH 30.5, MCHC 34.2 D, RDW Std Deviation 53.1 H, RDW Coeff of Emil 16.3 H, Plt Count 110 L, MPV 9.7, Immature Gran % (Auto) 1.200 H, Neut % (Auto) 60.3, Lymph % (Auto) 15.3 L, [place] % (Auto) 16.2 H, Eos % (Auto) 6.4 H, Baso % (Auto) 0.6, Absolute Neuts (auto) 2.1, Absolute Lymphs (auto) 0.53 L, Nucleated RBC % 0, Differential Comment SCANNED, Diff Path Review Reviewed 03/24/20 03:36: Sodium 138, Potassium 2.7 L*, Chloride 119 H, Carbon Dioxide 8.0 L*, Anion Gap 11, BUN 83 H, Creatinine 1.43 H, Estim Creat Clear Calc 44.44, Est GFR (MDRD) Af Amer 71, Est GFR (MDRD) Non-Af 59 L, BUN/Creatinine Ratio 58.0 H, Glucose 88, Calcium 7.3 L, Phosphorus 4.3, Magnesium 2.7 H 03/24/20 03:36: Iron 69, TIBC 260, Iron Saturation 26.5, Ferritin 159, TSH 24.10 H 03/24/20 13:50: Hgb 10.2 L, Hct 31.0 L 03/24/20 13:50: Sodium 140, Potassium 3.2 L, Chloride 122 H, Carbon Dioxide 10.0 L, Anion Gap 8, BUN 70 H, Creatinine 1.43 H, Estim Creat Clear Calc 46.89, Est GFR (MDRD) Af Amer 71, Est GFR (MDRD) Non-Af 59 L, BUN/Creatinine Ratio 49.0 H, Glucose 106, Calcium 7.4 L 03/24/20 16:15: Sodium Pending, Potassium Pending, Chloride Pending, Carbon Dioxide Pending, Anion Gap Pending, BUN Pending, Creatinine Pending, Est GFR (MDRD) Af Amer Pending, Est GFR (MDRD) Non-Af Pending, BUN/Creatinine Ratio Pending, Glucose Pending, Calcium Pending Current Medications Acetaminophen (Tylenol) 650 mg PO Q6H PRN PRN PRN Reason: Pain Score 1-10/Temp > 100.7 F Dextrose (D50w Syringe) 0 gm IV X1 PRN; Protocol PRN Reason: Hypoglycemia Glucagon () 1 mg IM .X1 PRN PRN Reason: Hypoglycemia Potassium Chloride 40 meq/ (Lactated Ringer's) 1,020 mls @ 150 mls/hr IV .Q6H48M [facility] Last Admin: 03/24/20 14:08 Dose: Not Given Documented by: Pantoprazole Sodium 40 mg/ (Sodium Chloride) 110 mls @ 330 mls/hr IV Q12 [facility] Last Infusion: 03/24/20 13:59 Dose: Infused Documented by: Potassium Chloride () 10 meq in 100 mls @ 100 mls/hr IV BOLUS Q1H [facility] Stop: 03/24/20 18:29 Last Admin: 03/24/20 15:55 Dose: 100 mls/hr Documented by: Loperamide HCl (Imodium Liquid) 2 mg PO Q4H PRN PRN PRN Reason: DIARRHEA/LOOSE STOOLS Last Admin: 03/24/20 10:46 Dose: 2 mg Documented by: Ondansetron HCl (Zofran) 4 mg IV Q8H PRN PRN PRN Reason: NAUSEA/VOMITING Sodium Chloride () 10 - 40 ml IV UD PRN PRN Reason: SALINE FLUSH Assessment/Plan All Active Problems (Last Updated 09/29/19 @ 08:29 by Cintia Ramos) Diarrhea (Acute) Metabolic acidosis (Acute) Acidosis. non gap. likely due to GI losses. hypokalemia. due to GI losses. better today Calcium levels are ok fluids changed as per orders [facility] pharmacy
[2020-03-24 17:32] LABS: Anion Gap 7 (5-15); BUN 69 mg/dL (7-18); BUN/Creat Ratio 49.3 RATIO (10-20); Calcium,Total 7.7 mg/dL (8.5-10.1); Chloride 123 mmol/L (98-107); EST Glomerular Filtration Rate 60 mL/min (>60); Est Glom Filt Rate - Afr Amer 73 mL/min (>60); Estimated Creatinine Clearance 47.89 ml/min; Glucose 84 mg/dL (74-106); Sodium Level 139 mmol/L (136-145)
[2020-03-24 21:14] LABS: Anion Gap 10 (5-15); BUN 66 mg/dL (7-18); BUN/Creat Ratio 50.4 RATIO (10-20); Calcium,Total 7.5 mg/dL (8.5-10.1); Chloride 126 mmol/L (98-107); Creatinine, Serum 1.31 mg/dL (0.70-1.30); EST Glomerular Filtration Rate 65 mL/min (>60); Est Glom Filt Rate - Afr Amer 78 mL/min (>60); Estimated Creatinine Clearance 51.19 ml/min; Glucose 124 mg/dL (74-106); Potassium 4.3 mmol/L (3.5-5.1); Sodium Level 144 mmol/L (136-145)
--- NOTE | 2020-03-24 22:50 | NURSING ---
Notified Dr. House of critcally low CO2 of 8. Order received to [facility] one amp of Sodium Bicarbonate. Pharmacist notified of order as well.
--- NOTE | 2020-03-24 23:33 | NURSING ---
Patient refused BiCarb push ordered by Dr. House. Patient states it burned my veins too bad when I had it in [place]. Dr. House notified.
[2020-03-25] VITALS (11 sets, daily range): BP systolic 100–118; BP diastolic 60–72; PULSE 68–83; RESP 15–18; TEMP 36.4–36.7; O2SAT 99–100
[2020-03-25 04:52] LABS: Anion Gap 7 (5-15); BUN 60 mg/dL (7-18); BUN/Creat Ratio 45.5 RATIO (10-20); Calcium,Total 7.6 mg/dL (8.5-10.1); Chloride 122 mmol/L (98-107); Creatinine, Serum 1.32 mg/dL (0.70-1.30); EST Glomerular Filtration Rate 64 mL/min (>60); Est Glom Filt Rate - Afr Amer 78 mL/min (>60); Glucose 112 mg/dL (74-106); Potassium 3.7 mmol/L (3.5-5.1); Sodium Level 140 mmol/L (136-145)
[2020-03-25 06:38] LABS: Hematocrit 25.5 % (40-54); Hemoglobin 8.3 g/dL (13.0-16.5); Mean Corp Hgb Conc 32.5 g/dL (32-36); Mean Corpuscular Hgb 29.2 pg (27.0-32.0); Mean Corpuscular Volume 89.8 fL (80-94); Mean Platelet Vol. 9.3 fl (6.2-12.0); Platelet Count 104 K/mm3 (150-450); RBC Distribution Width CV 16.5 % (11.6-14.6); RBC Distribution Width SD 53.8 fl (35.1-43.9); Red Blood Count 2.84 M/mm3 (4.6-6.2); White Blood Count 3.8 K/mm3 (4.4-11.0)
[2020-03-25 07:12] LABS: ALB/GLOB Ratio 0.6 RATIO (0.9-2.4); AST(SGOT) 44 U/L (15-37); Alanine Aminotransfer ALT/SGPT 39 U/L (16-61); Albumin, Serum 2.4 g/dL (3.2-5.0); Alkaline Phosphatase 148 U/L (45-117); Anion Gap 13 (5-15); BUN 57 mg/dL (7-18); BUN/Creat Ratio 42.2 RATIO (10-20); Calcium,Total 7.7 mg/dL (8.5-10.1); Chloride 115 mmol/L (98-107); Creatinine, Serum 1.35 mg/dL (0.70-1.30); EST Glomerular Filtration Rate 63 mL/min (>60); Est Glom Filt Rate - Afr Amer 76 mL/min (>60); Estimated Creatinine Clearance 49.67 ml/min; Glucose 106 mg/dL (74-106); Magnesium 1.8 mg/dL (1.6-2.6); Phosphorus 2.7 mg/dL (2.5-4.9); Potassium 3.6 mmol/L (3.5-5.1); Protein, Total 6.4 g/dL (6.4-8.2); Sodium Level 140 mmol/L (136-145)
--- NOTE | 2020-03-25 07:55 | PN_ITS ---
Patient Problems: Active and Suspected Problems (Last Updated 09/29/19 @ 08:29 by Cintia Ramos) Diarrhea (Acute) Metabolic acidosis (Acute) Reason for Visit: Hypokalemia, metabolic acidosis, Subjective: Patient seen much more awake compared to the day prior. Slight improvement in patient bicarb level however still remains acidotic. Consult was placed to nephrology patient was seen by Dr. Kaur the day prior. His notes and recommendations reviewed Objective: GENERAL: cooperative HEENT: Atraumatic; EYES; Anicteric, Normal Conjunctiva NECK; supple, normal thyroid, RESPIRATORY: Diminished to auscultation CARDIOVASCULAR: Regular S1 S2, GI: soft, normoactive bowel sounds, : No Renal angle tenderness; EXTREMITIES: No edema, no clubbing, MUSCULOSKELETAL: no muscle waisting NEURO: Awake; no lateralizing signs. SKIN: No Rash PSYCH; Flat affect Vitals/I&O's: Vital Signs Temp Pulse Resp BP Pulse Ox 98.1 F 77 18 111/72 100 03/25/20 03:45 03/25/20 07:13 03/25/20 03:45 03/25/20 03:45 03/25/20 03:45 Oxygen Delivery Method Room Air Weight: 47.8 kg Body Mass Index (BMI) 15.6 Intake and Output for Last 24 Hours 03/23/20 03/24/20 03/25/20 23:59 23:59 23:59 Intake Total 850 / 1090 8098.33 / 8198.33 1750 / 1750 Output Total 2800 / 2800 Balance 850 / 290 5298.33 / 5398.33 1750 / 1750 Microbiology Past 72 Hours 03/24/20 00:10 Stool Enteric Bacteriology - Final 03/24/20 00:10 Stool Stool Occult Blood (APPLE) - Final Occult Blood Positive 03/24/20 00:10 Stool C. difficile DNA Amplification - Final Laboratory Results 03/23/20 14:50: Crossmatch See Detail 03/24/20 03:30: Free T4 0.60 L 03/24/20 03:36: Diff Path Review Reviewed 03/24/20 03:36: Iron 69, TIBC 260, Iron Saturation 26.5, Ferritin 159, TSH 24.10 H 03/24/20 13:50: Hgb 10.2 L, Hct 31.0 L 03/24/20 13:50: Sodium 140, Potassium 3.2 L, Chloride 122 H, Carbon Dioxide 10.0 L, Anion Gap 8, BUN 70 H, Creatinine 1.43 H, Estim Creat Clear Calc 46.89, Est GFR (MDRD) Af Amer 71, Est GFR (MDRD) Non-Af 59 L, BUN/Creatinine Ratio 49.0 H, Glucose 106, Calcium 7.4 L 03/24/20 16:15: Sodium 139, Potassium 4.0, Chloride 123 H, Carbon Dioxide 9.0 L* , Anion Gap 7, BUN 69 H, Creatinine 1.40 H, Estim Creat Clear Calc 47.89, Est GFR (MDRD) Af Amer 73, Est GFR (MDRD) Non-Af 60, BUN/Creatinine Ratio 49.3 H, Glucose 84, Calcium 7.7 L 03/24/20 20:30: Sodium 144, Potassium 4.3, Chloride 126 H, Carbon Dioxide 8.0 L* , Anion Gap 10, BUN 66 H, Creatinine 1.31 H, Estim Creat Clear Calc 51.19, Est GFR (MDRD) Af Amer 78, Est GFR (MDRD) Non-Af 65, BUN/Creatinine Ratio 50.4 H, Glucose 124 H, Calcium 7.5 L 03/25/20 04:17: Sodium 140, Potassium 3.7, Chloride 122 H, Carbon Dioxide 11.0 L , Anion Gap 7, BUN 60 H, Creatinine 1.32 H, Estim Creat Clear Calc 50.80, Est GFR (MDRD) Af Amer 78, Est GFR (MDRD) Non-Af 64, BUN/Creatinine Ratio 45.5 H, Glucose 112 H, Calcium 7.6 L 03/25/20 06:25: WBC 3.8 L, RBC 2.84 L, Hgb 8.3 L, Hct 25.5 L, MCV 89.8, MCH 29.2, MCHC 32.5, RDW Std Deviation 53.8 H, RDW Coeff of Emil 16.5 H, Plt Count 104 L, MPV 9.3 03/25/20 06:25: Sodium 140, Potassium 3.6, Chloride 115 H, Carbon Dioxide 12.0 L , Anion Gap 13, BUN 57 H, Creatinine 1.35 H, Estim Creat Clear Calc 49.67, Est GFR (MDRD) Af Amer 76, Est GFR (MDRD) Non-Af 63, BUN/Creatinine Ratio 42.2 H, Gl ucose 106, Calcium 7.7 L, Phosphorus 2.7, Magnesium 1.8, Total Bilirubin 0.60, AST 44 H, ALT 39, Alkaline Phosphatase 148 H, Total Protein 6.4, Albumin 2.4 L, Globulin 4.0, Albumin/Globulin Ratio 0.6 L Current Medications Acetaminophen (Tylenol) 650 mg PO Q6H PRN PRN PRN Reason: Pain Score 1-10/Temp > 100.7 F Dextrose (D50w Syringe) 0 gm IV X1 PRN; Protocol PRN Reason: Hypoglycemia Glucagon () 1 mg IM .X1 PRN PRN Reason: Hypoglycemia Pantoprazole Sodium 40 mg/ (Sodium Chloride) 110 mls @ 330 mls/hr IV Q12 [facility] Last Infusion: 03/24/20 23:38 Dose: Infused Documented by: Sodium Bicarbonate 150 meq/ (Dextrose) 1,150 mls @ 200 mls/hr IV .Q5H45M [facility] Last Admin: 03/25/20 05:24 Dose: 200 mls/hr Documented by: Loperamide HCl (Imodium Liquid) 2 mg PO Q4H PRN PRN PRN Reason: DIARRHEA/LOOSE STOOLS Last Admin: 03/24/20 10:46 Dose: 2 mg Documented by: Ondansetron HCl (Zofran) 4 mg IV Q8H PRN PRN PRN Reason: NAUSEA/VOMITING Potassium Chloride (K-Dur) 40 meq PO BIDCM [facility] Last Admin: 03/24/20 17:41 Dose: 40 meq Documented by: Sodium Chloride () 10 - 40 ml IV UD PRN PRN Reason: SALINE FLUSH STROKE Vital Signs/Narrative: Vital Signs Pulse 03/25/20 07:13 77 Medical Necessity - Tobacco Use Smoking Status: Never smoker Assessment/Plan All Active Problems (Last Updated 09/29/19 @ 08:29 by Cintia Ramos) Diarrhea (Acute) Metabolic acidosis (Acute) Patient is a 40-year-old gentleman with history of short gut syndrome following history of gastroschisis as a kid who presented with diarrhea and lethargy Patient was found to have acute non-anion gap metabolic acidosis with electrolyte abnormalities including hypokalemia and hypomagnesemia admitted to the intensive care unit where patient is currently being managed 1. Acute diarrhea secondary to short gut syndrome ?With subsequent electrolyte abnormalities. With patient having recently been treated with antibiotics stool samples were sent to rule out C. difficile 2. Acute noniron gap metabolic acidosis ?Patient being managed with IV fluids as well as bicarb drip with serial monitoring of electrolytes -03/25/2020; Slight improvement in patient bicarb level however still remains acidotic. Consult was placed to nephrology patient was seen by Dr. Kaur the day prior. His notes and recommendations reviewed 3. Hypokalemia ?Repleted per protocol 4. Hypomagnesemia corrected per protocol 5. Recent skin infection with MSSA ?Patient was treated with cefazolin for a month in [place], [place] 6. Anemia ?Do suspect anemia of chronic disorder patient hemoglobin did drop significantly from 9.5 on admission to 6.4. Plan is to transfuse to keep patient hemoglobin above 7 7. History of gastroschisis with subsequent short gut syndrome -Had a discussion with patient's mom who initially wanted patient transferred to tertiary care center however she changed her mind and insisted on patient staying in the hospital for his electrolyte abnormalities to be corrected. She plans to take patient as outpatient to be evaluated by gastroenterology 8. Severe protein calorie malnutrition as evidenced by muscle wasting as well as low BMI ?Consult placed to dietitian 9. DVT prophylaxis ?Bilateral SCDs Inpatient E&M: [id number] [facility] L2
--- NOTE | 2020-03-25 08:14 | PCM.PN.PUL ---
Patient Problems: Active and Suspected Problems (Last Updated 09/29/19 @ 08:29 by Cintia Ramos) Diarrhea (Acute) Metabolic acidosis (Acute) Subjective: The patient was seen and examined at the bedside this morning. Events from the last 24 hours have been reviewed. The patient is currently afebrile, hemodynamically stable and maintaining appropriate oxygen saturations on room air. The patient's anemia corrected yesterday with transfusion of 2 units of packed red blood cells. Hemoglobin this morning was noted to be 8.3 g/dL. Electrolyte metabolic derangements are slowly improving. However, GI losses are ongoing. Objective: The patient's most recent lab work, culture data and imaging studies have all been personally reviewed. C. difficile was negative. Enteric panel was negative. Stool for occult blood was positive. - Physical Exam Vitals/I&O's: Vital Signs Temp Pulse Resp BP Pulse Ox 98.1 F 77 18 111/72 100 03/25/20 03:45 03/25/20 07:13 03/25/20 03:45 03/25/20 03:45 03/25/20 03:45 Oxygen Delivery Method Room Air Weight: 105 lb 6.095 oz Body Mass Index (BMI) 15.6 Intake and Output for Last 24 Hours 03/23/20 03/24/20 03/25/20 23:59 23:59 23:59 Intake Total 850 / 1090 8098.33 / 8198.33 1750 / 1750 Output Total 2800 / 2800 Balance 850 / 290 5298.33 / 5398.33 1750 / 1750 General: Alert, Cooperative, - - Frail and cachectic in appearance HEENT: Atraumatic, Normocephalic Oral: No Gingival or Mucosal Lesions/ Ulcerations Neck: Supple, No Nodes, Trachea Midline Lungs: No rhonchi, No wheeze, No rales Cardiovascular: Regular rate, Regular Rhythm Abdomen: Bowel Sounds Present, Soft, Non Tender Extremities: No clubbing, No cyanosis, No edema Skin: No breakdown Musculoskeletal: Cachexia, Muscle Wasting Lymphatic: No Cervical, Supraclavicular, or Inguinal Adenopathy Neurological: Cranial nerves II-XII grossly intact, Neuro grossly intact Psych/Mental Status: Flat Affect Labs (Last 48 Hours) 03/23/20 03/23/20 03/23/20 14:50 14:50 14:50 WBC 6.9 RBC 3.18 L Hgb 9.5 L Hct 29.5 L MCV 92.8 MCH 29.9 MCHC 32.2 RDW Std Deviation 56.9 H RDW Coeff of Emil 16.7 H Plt Count 117 L MPV 9.5 Immature Gran % (Auto) 1.900 H Neut % (Auto) 69.7 Lymph % (Auto) 10.9 L Beauregard % (Auto) 12.1 H Eos % (Auto) 4.7 Baso % (Auto) 0.7 Absolute Neuts (auto) 4.8 Absolute Lymphs (auto) 0.75 L Nucleated RBC % 0 Differential Comment Diff Path Review Specimen Type Sample Site pH Bicarbonate Actual POC Total CO2 Base Excess O2 Saturation ABG pCO2 ABG pO2 Mert Test O2 Delivery Device Blood Gas Notified Whom Sodium 137 Potassium 3.3 L Chloride 117 H Carbon Dioxide 7.0 L* Anion Gap 13 BUN 91 H Creatinine 1.64 H Estim Creat Clear Calc 44.23 Est GFR (MDRD) Af Amer 60 Est GFR (MDRD) Non-Af 50 L BUN/Creatinine Ratio 55.5 H Glucose 90 Calcium 7.9 L Phosphorus 4.9 Magnesium 1.2 L Iron TIBC Iron Saturation Ferritin Total Bilirubin 0.40 Direct Bilirubin 0.16 AST 42 H ALT 41 Alkaline Phosphatase 169 H Troponin I < 0.015 Total Protein 8.2 Albumin 3.2 Globulin 5.0 H Albumin/Globulin Ratio TSH Free T4 Urine Color Urine Clarity Urine pH Ur Specific Ovalo Urine Protein Urine Glucose (UA) Urine Ketones Urine Occult Blood Urine Nitrite Urine Bilirubin Urine Urobilinogen Ur Leukocyte Esterase Urine RBC Urine WBC Ur Squamous Epith Cells Amorphous Sediment Urine Bacteria Hyaline Casts Fine Granular Casts Urine Mucus Stl Giardia Antigen Blood Type O POSITIVE Antibody Screen NEGATIVE Crossmatch 03/23/20 03/23/20 03/23/20 14:50 16:15 16:41 WBC RBC Hgb Hct MCV MCH MCHC RDW Std Deviation RDW Coeff of Emil Plt Count MPV Immature Gran % (Auto) Neut % (Auto) Lymph % (Auto) Beauregard % (Auto) Eos % (Auto) Baso % (Auto) Absolute Neuts (auto) Absolute Lymphs (auto) Nucleated RBC % Differential Comment Diff Path Review Specimen Type ART Sample Site L BRACHIAL pH 7.17 L* Bicarbonate Actual 3.6 L POC Total CO2 < 5 Base Excess -25 L O2 Saturation 98 ABG pCO2 9.9 L* ABG pO2 136 H Mert Test NA O2 Delivery Device Room Air Blood Gas Notified Whom ED MD Sodium Potassium Chloride Carbon Dioxide Anion Gap BUN Creatinine Estim Creat Clear Calc Est GFR (MDRD) Af Amer Est GFR (MDRD) Non-Af BUN/Creatinine Ratio Glucose Calcium Phosphorus Magnesium Iron TIBC Iron Saturation Ferritin Total Bilirubin Direct Bilirubin AST ALT Alkaline Phosphatase Troponin I Total Protein Albumin Globulin Albumin/Globulin Ratio TSH Free T4 Urine Color Yellow Urine Clarity Sl. Cloudy Urine pH 6.0 Ur Specific Ovalo 1.010 Urine Protein 100 H Urine Glucose (UA) Normal Urine Ketones Negative Urine Occult Blood 250 H Urine Nitrite Negative Urine Bilirubin Negative Urine Urobilinogen Normal Ur Leukocyte Esterase Negative Urine RBC 10-25 SEEN Urine WBC 0-5 SEEN Ur Squamous Epith Cells 0-5 SEEN Amorphous Sediment 2+ Urine Bacteria 0 SEEN Hyaline Casts 0-5 SEEN Fine Granular Casts 0-5 SEEN Urine Mucus 0 SEEN Stl Giardia Antigen Blood Type Antibody Screen Crossmatch See Detail 03/23/20 03/24/20 03/24/20 21:00 00:10 03:30 WBC RBC Hgb Hct MCV MCH MCHC RDW Std Deviation RDW Coeff of Emil Plt Count MPV Immature Gran % (Auto) Neut % (Auto) Lymph % (Auto) Beauregard % (Auto) Eos % (Auto) Baso % (Auto) Absolute Neuts (auto) Absolute Lymphs (auto) Nucleated RBC % Differential Comment Diff Path Review Specimen Type Sample Site pH Bicarbonate Actual POC Total CO2 Base Excess O2 Saturation ABG pCO2 ABG pO2 Mert Test O2 Delivery Device Blood Gas Notified Whom Sodium 142 Potassium 2.6 L* Chloride 121 H Carbon Dioxide 7.0 L* Anion Gap 14 BUN 93 H Creatinine 1.56 H Estim Creat Clear Calc 40.73 Est GFR (MDRD) Af Amer 64 Est GFR (MDRD) Non-Af 53 L BUN/Creatinine Ratio 59.6 H Glucose 114 H Calcium 7.4 L Phosphorus 5.1 H Magnesium Iron TIBC Iron Saturation Ferritin Total Bilirubin Direct Bilirubin AST ALT Alkaline Phosphatase Troponin I Total Protein Albumin Globulin Albumin/Globulin Ratio TSH Free T4 0.60 L Urine Color Urine Clarity Urine pH Ur Specific Ovalo Urine Protein Urine Glucose (UA) Urine Ketones Urine Occult Blood Urine Nitrite Urine Bilirubin Urine Urobilinogen Ur Leukocyte Esterase Urine RBC Urine WBC Ur Squamous Epith Cells Amorphous Sediment Urine Bacteria Hyaline Casts Fine Granular Casts Urine Mucus Stl Giardia Antigen Pending Blood Type Antibody Screen Crossmatch 03/24/20 03/24/20 03/24/20 03:36 03:36 03:36 WBC 3.5 L RBC 2.10 L Hgb 6.4 L Hct 18.7 L MCV 89.0 MCH 30.5 MCHC 34.2 D RDW Std Deviation 53.1 H RDW Coeff of Emil 16.3 H Plt Count 110 L MPV 9.7 Immature Gran % (Auto) 1.200 H Neut % (Auto) 60.3 Lymph % (Auto) 15.3 L Beauregard % (Auto) 16.2 H Eos % (Auto) 6.4 H Baso % (Auto) 0.6 Absolute Neuts (auto) 2.1 Absolute Lymphs (auto) 0.53 L Nucleated RBC % 0 Differential Comment SCANNED Diff Path Review Reviewed Specimen Type Sample Site pH Bicarbonate Actual POC Total CO2 Base Excess O2 Saturation ABG pCO2 ABG pO2 Mert Test O2 Delivery Device Blood Gas Notified Whom Sodium 138 Potassium 2.7 L* Chloride 119 H Carbon Dioxide 8.0 L* Anion Gap 11 BUN 83 H Creatinine 1.43 H Estim Creat Clear Calc 44.44 Est GFR (MDRD) Af Amer 71 Est GFR (MDRD) Non-Af 59 L BUN/Creatinine Ratio 58.0 H Glucose 88 Calcium 7.3 L Phosphorus 4.3 Magnesium 2.7 H Iron 69 TIBC 260 Iron Saturation 26.5 Ferritin 159 Total Bilirubin Direct Bilirubin AST ALT Alkaline Phosphatase Troponin I Total Protein Albumin Globulin Albumin/Globulin Ratio TSH 24.10 H Free T4 Urine Color Urine Clarity Urine pH Ur Specific Ovalo Urine Protein Urine Glucose (UA) Urine Ketones Urine Occult Blood Urine Nitrite Urine Bilirubin Urine Urobilinogen Ur Leukocyte Esterase Urine RBC Urine WBC Ur Squamous Epith Cells Amorphous Sediment Urine Bacteria Hyaline Casts Fine Granular Casts Urine Mucus Stl Giardia Antigen Blood Type Antibody Screen Crossmatch 03/24/20 03/24/20 03/24/20 13:50 13:50 16:15 WBC RBC Hgb 10.2 L Hct 31.0 L MCV MCH MCHC RDW Std Deviation RDW Coeff of Emil Plt Count MPV Immature Gran % (Auto) Neut % (Auto) Lymph % (Auto) Beauregard % (Auto) Eos % (Auto) Baso % (Auto) Absolute Neuts (auto) Absolute Lymphs (auto) Nucleated RBC % Differential Comment Diff Path Review Specimen Type Sample Site pH Bicarbonate Actual POC Total CO2 Base Excess O2 Saturation ABG pCO2 ABG pO2 Mert Test O2 Delivery Device Blood Gas Notified Whom Sodium 140 139 Potassium 3.2 L 4.0 Chloride 122 H 123 H Carbon Dioxide 10.0 L 9.0 L* Anion Gap 8 7 BUN 70 H 69 H Creatinine 1.43 H 1.40 H Estim Creat Clear Calc 46.89 47.89 Est GFR (MDRD) Af Amer 71 73 Est GFR (MDRD) Non-Af 59 L 60 BUN/Creatinine Ratio 49.0 H 49.3 H Glucose 106 84 Calcium 7.4 L 7.7 L Phosphorus Magnesium Iron TIBC Iron Saturation Ferritin Total Bilirubin Direct Bilirubin AST ALT Alkaline Phosphatase Troponin I Total Protein Albumin Globulin Albumin/Globulin Ratio TSH Free T4 Urine Color Urine Clarity Urine pH Ur Specific Ovalo Urine Protein Urine Glucose (UA) Urine Ketones Urine Occult Blood Urine Nitrite Urine Bilirubin Urine Urobilinogen Ur Leukocyte Esterase Urine RBC Urine WBC Ur Squamous Epith Cells Amorphous Sediment Urine Bacteria Hyaline Casts Fine Granular Casts Urine Mucus Stl Giardia Antigen Blood Type Antibody Screen Crossmatch 03/24/20 03/25/20 03/25/20 20:30 04:17 06:25 WBC 3.8 L RBC 2.84 L Hgb 8.3 L Hct 25.5 L MCV 89.8 MCH 29.2 MCHC 32.5 RDW Std Deviation 53.8 H RDW Coeff of Emil 16.5 H Plt Count 104 L MPV 9.3 Immature Gran % (Auto) Neut % (Auto) Lymph % (Auto) Beauregard % (Auto) Eos % (Auto) Baso % (Auto) Absolute Neuts (auto) Absolute Lymphs (auto) Nucleated RBC % Differential Comment Diff Path Review Specimen Type Sample Site pH Bicarbonate Actual POC Total CO2 Base Excess O2 Saturation ABG pCO2 ABG pO2 Mert Test O2 Delivery Device Blood Gas Notified Whom Sodium 144 140 Potassium 4.3 3.7 Chloride 126 H 122 H Carbon Dioxide 8.0 L* 11.0 L Anion Gap 10 7 BUN 66 H 60 H Creatinine 1.31 H 1.32 H Estim Creat Clear Calc 51.19 50.80 Est GFR (MDRD) Af Amer 78 78 Est GFR (MDRD) Non-Af 65 64 BUN/Creatinine Ratio 50.4 H 45.5 H Glucose 124 H 112 H Calcium 7.5 L 7.6 L Phosphorus Magnesium Iron TIBC Iron Saturation Ferritin Total Bilirubin Direct Bilirubin AST ALT Alkaline Phosphatase Troponin I Total Protein Albumin Globulin Albumin/Globulin Ratio TSH Free T4 Urine Color Urine Clarity Urine pH Ur Specific Ovalo Urine Protein Urine Glucose (UA) Urine Ketones Urine Occult Blood Urine Nitrite Urine Bilirubin Urine Urobilinogen Ur Leukocyte Esterase Urine RBC Urine WBC Ur Squamous Epith Cells Amorphous Sediment Urine Bacteria Hyaline Casts Fine Granular Casts Urine Mucus Stl Giardia Antigen Blood Type Antibody Screen Crossmatch 03/25/20 06:25 WBC RBC Hgb Hct MCV MCH MCHC RDW Std Deviation RDW Coeff of Emil Plt Count MPV Immature Gran % (Auto) Neut % (Auto) Lymph % (Auto) Beauregard % (Auto) Eos % (Auto) Baso % (Auto) Absolute Neuts (auto) Absolute Lymphs (auto) Nucleated RBC % Differential Comment Diff Path Review Specimen Type Sample Site pH Bicarbonate Actual POC Total CO2 Base Excess O2 Saturation ABG pCO2 ABG pO2 Mert Test O2 Delivery Device Blood Gas Notified Whom Sodium 140 Potassium 3.6 Chloride 115 H Carbon Dioxide 12.0 L Anion Gap 13 BUN 57 H Creatinine 1.35 H Estim Creat Clear Calc 49.67 Est GFR (MDRD) Af Amer 76 Est GFR (MDRD) Non-Af 63 BUN/Creatinine Ratio 42.2 H Glucose 106 Calcium 7.7 L Phosphorus 2.7 Magnesium 1.8 Iron TIBC Iron Saturation Ferritin Total Bilirubin 0.60 Direct Bilirubin AST 44 H ALT 39 Alkaline Phosphatase 148 H Troponin I Total Protein 6.4 Albumin 2.4 L Globulin 4.0 Albumin/Globulin Ratio 0.6 L TSH Free T4 Urine Color Urine Clarity Urine pH Ur Specific Ovalo Urine Protein Urine Glucose (UA) Urine Ketones Urine Occult Blood Urine Nitrite Urine Bilirubin Urine Urobilinogen Ur Leukocyte Esterase Urine RBC Urine WBC Ur Squamous Epith Cells Amorphous Sediment Urine Bacteria Hyaline Casts Fine Granular Casts Urine Mucus Stl Giardia Antigen Blood Type Antibody Screen Crossmatch Microbiology 03/24/20 00:10 Stool Enteric Bacteriology - Final 03/24/20 00:10 Stool Stool Occult Blood (APPLE) - Final Occult Blood Positive 03/24/20 00:10 Stool C. difficile DNA Amplification - Final Clinical Impression(s) from Imaging Studies Chest X-Ray 03/23/20 15:25 IMPRESSION: Normal x-ray examination of the chest. Electronically Signed: Se Kearns MD at 16:05 EDT , Service support , Current Medications Acetaminophen (Tylenol) 650 mg PO Q6H PRN PRN PRN Reason: Pain Score 1-10/Temp > 100.7 F Dextrose (D50w Syringe) 0 gm IV X1 PRN; Protocol PRN Reason: Hypoglycemia Glucagon () 1 mg IM .X1 PRN PRN Reason: Hypoglycemia Pantoprazole Sodium 40 mg/ (Sodium Chloride) 110 mls @ 330 mls/hr IV Q12 [facility] Last Infusion: 03/24/20 23:38 Dose: Infused Documented by: Sodium Bicarbonate 150 meq/ (Dextrose) 1,150 mls @ 200 mls/hr IV .Q5H45M [facility] Last Admin: 03/25/20 05:24 Dose: 200 mls/hr Documented by: Loperamide HCl (Imodium Liquid) 2 mg PO Q4H PRN PRN PRN Reason: DIARRHEA/LOOSE STOOLS Last Admin: 03/24/20 10:46 Dose: 2 mg Documented by: Ondansetron HCl (Zofran) 4 mg IV Q8H PRN PRN PRN Reason: NAUSEA/VOMITING Potassium Chloride (K-Dur) 40 meq PO BIDCM [facility] Last Admin: 03/24/20 17:41 Dose: 40 meq Documented by: Sodium Chloride () 10 - 40 ml IV UD PRN PRN Reason: SALINE FLUSH Medical Necessity - Tobacco Use Smoking Status: Never smoker Assessment/Plan All Active Problems (Last Updated 09/29/19 @ 08:29 by Cintia Ramos) Diarrhea (Acute) Metabolic acidosis (Acute) RECOMMENDATIONS: 1. Continue supplemental IV fluids with bicarbonate replacement per nephrology recommendations. 2. Monitor and replete electrolytes as needed. 3. Monitor blood counts daily. Plan to transfuse if hemoglobin drops below 7 g/dL. 4. Continue PPI therapy and loperamide. 5. The patient will require close interval follow-up with GI. IMPRESSIONS: 1. Metabolic acidosis likely secondary to GI losses in the setting of short bowel syndrome Slowly improving with bicarbonate containing supplemental fluids. Infectious work-up has been negative. The patient will be continued on twice daily PPI therapy along with loperamide. Fluids will be continued to offset GI losses. The patient ideally needs to be set up with a edi analyst to help manage his short bowel syndrome and nutritional deficiencies. If the patient is unable to tolerate p.o. intake and continues to have significant GI losses, he may need to be considered again for vascular access placement to facilitate TPN administration. 2. Acute kidney injury Improving. Likely prerenal in etiology and related to ongoing GI losses and subsequent intravascular volume depletion. Anticipate improvement with volume expansion. Continue to monitor urine output for now. No current indication for renal replacement therapy. 3. Normocytic anemia I suspect the patient's anemia is likely secondary to nutritional deficiencies and resultant poor iron stores. The patient did receive 2 units packed red blood cells with subsequent improvement in his anemia. Plan to continue to monitor H&H daily, with plans to transfuse if hemoglobin drops below 7 g/dL. He apparently regularly receives Injectafer as an outpatient. Protonix twice daily will also be continued. 4. Hypothyroidism/protein calorie malnutrition/generalized weakness Complicates care, management, recovery and prognosis. Nutrition services is currently following. Continue home medications were indicated. This note was generated with [employer] dictation software. It may contain incorrect words, spelling, and punctuation that were not noted in checking the note before signing. Inpatient E&M: 17987 Subs Hosp L2
[2020-03-25] MEDS: 0.9% Saline Lock 10 ML Syringe IV ×3 (11:27→18:40)
[2020-03-25 11:45] LABS: Anion Gap 8 (5-15); BUN 55 mg/dL (7-18); BUN/Creat Ratio 45.1 RATIO (10-20); Calcium,Total 7.7 mg/dL (8.5-10.1); Chloride 121 mmol/L (98-107); Creatinine, Serum 1.22 mg/dL (0.70-1.30); EST Glomerular Filtration Rate 70 mL/min (>60); Est Glom Filt Rate - Afr Amer 85 mL/min (>60); Glucose 111 mg/dL (74-106); Potassium 3.4 mmol/L (3.5-5.1); Sodium Level 142 mmol/L (136-145)
[2020-03-25 16:27] LABS: Giardia Lamblia, Stool EIA Negative (Negative)
--- NOTE | 2020-03-25 18:21 | PN.RENAL_ITS ---
Patient Problems: Active and Suspected Problems (Last Updated 09/29/19 @ 08:29 by Cintia Ramos) Diarrhea (Acute) Metabolic acidosis (Acute) Subjective: No acute complaints No nausea No vomiting No SOB - Physical Exam Vitals/I&O's: Vital Signs Temp Pulse Resp BP Pulse Ox 98.1 F 83 16 112/66 99 03/25/20 14:16 03/25/20 15:00 03/25/20 14:16 03/25/20 14:16 03/25/20 14:16 Oxygen Delivery Method Room Air Weight: 50.7 kg Body Mass Index (BMI) 15.6 Intake and Output for Last 24 Hours 03/23/20 03/24/20 03/25/20 23:59 23:59 23:59 Intake Total 850 / 1090 8098.33 / 8198.33 3630 / 3630 Output Total 2800 / 2800 Balance 850 / 290 5298.33 / 5398.33 3630 / 3630 General: Alert, Oriented x3 HEENT: Atraumatic Oral: Moist Mucosa Neck: Supple Lungs: Clear to auscultation, Normal air movement, No rhonchi Cardiovascular: Regular rate, Regular Rhythm, Normal S1 Abdomen: Bowel Sounds Present, Soft, Non Tender Extremities: No clubbing, No cyanosis, No edema Skin: No rashes Lymphatic: No Cervical, Supraclavicular, or Inguinal Adenopathy Neurological: Neuro grossly intact Psych/Mental Status: Appropriate Microbiology Past 72 Hours 03/24/20 00:10 Stool Enteric Bacteriology - Final 03/24/20 00:10 Stool Stool Occult Blood (APPLE) - Final Occult Blood Positive 03/24/20 00:10 Stool C. difficile DNA Amplification - Final Laboratory Results 03/24/20 00:10: Stl Giardia Antigen Negative 03/24/20 20:30: Sodium 144, Potassium 4.3, Chloride 126 H, Carbon Dioxide 8.0 L* , Anion Gap 10, BUN 66 H, Creatinine 1.31 H, Estim Creat Clear Calc 51.19, Est GFR (MDRD) Af Amer 78, Est GFR (MDRD) Non-Af 65, BUN/Creatinine Ratio 50.4 H, Glucose 124 H, Calcium 7.5 L 03/25/20 04:17: Sodium 140, Potassium 3.7, Chloride 122 H, Carbon Dioxide 11.0 L , Anion Gap 7, BUN 60 H, Creatinine 1.32 H, Estim Creat Clear Calc 50.80, Est GFR (MDRD) Af Amer 78, Est GFR (MDRD) Non-Af 64, BUN/Creatinine Ratio 45.5 H, Glucose 112 H, Calcium 7.6 L 03/25/20 06:25: WBC 3.8 L, RBC 2.84 L, Hgb 8.3 L, Hct 25.5 L, MCV 89.8, MCH 29.2, MCHC 32.5, RDW Std Deviation 53.8 H, RDW Coeff of Emil 16.5 H, Plt Count 104 L, MPV 9.3 03/25/20 06:25: Sodium 140, Potassium 3.6, Chloride 115 H, Carbon Dioxide 12.0 L , Anion Gap 13, BUN 57 H, Creatinine 1.35 H, Estim Creat Clear Calc 49.67, Est GFR (MDRD) Af Amer 76, Est GFR (MDRD) Non-Af 63, BUN/Creatinine Ratio 42.2 H, Glucose 106, Calcium 7.7 L, Phosphorus 2.7, Magnesium 1.8, Total Bilirubin 0.60, AST 44 H, ALT 39, Alkaline Phosphatase 148 H, Total Protein 6.4, Albumin 2.4 L, Globulin 4.0, Albumin/Globulin Ratio 0.6 L 03/25/20 11:20: Sodium 142, Potassium 3.4 L, Chloride 121 H, Carbon Dioxide 13.0 L, Anion Gap 8, BUN 55 H, Creatinine 1.22, Estim Creat Clear Calc 58.30, Est GFR (MDRD) Af Amer 85, Est GFR (MDRD) Non-Af 70, BUN/Creatinine Ratio 45.1 H, Glucose 111 H, Calcium 7.7 L Current Medications Acetaminophen (Tylenol) 650 mg PO Q6H PRN PRN PRN Reason: Pain Score 1-10/Temp > 100.7 F Dextrose (D50w Syringe) 0 gm IV X1 PRN; Protocol PRN Reason: Hypoglycemia Glucagon () 1 mg IM .X1 PRN PRN Reason: Hypoglycemia Pantoprazole Sodium 40 mg/ (Sodium Chloride) 110 mls @ 330 mls/hr IV Q12 [facility] Last Infusion: 03/25/20 12:17 Dose: Infused Documented by: Sodium Bicarbonate 150 meq/ (Dextrose) 1,150 mls @ 200 mls/hr IV .Q5H45M [facility] Last Admin: 03/25/20 12:45 Dose: 200 mls/hr Documented by: Loperamide HCl (Imodium Liquid) 2 mg PO Q4H PRN PRN PRN Reason: DIARRHEA/LOOSE STOOLS Last Admin: 03/24/20 10:46 Dose: 2 mg Documented by: Ondansetron HCl (Zofran) 4 mg IV Q8H PRN PRN PRN Reason: NAUSEA/VOMITING Potassium Chloride (K-Dur) 40 meq PO BIDCM [facility] Last Admin: 03/25/20 16:34 Dose: 40 meq Documented by: Sodium Chloride () 10 - 40 ml IV UD PRN PRN Reason: SALINE FLUSH Last Admin: 03/25/20 12:19 Dose: 10 ml Documented by: Medical Necessity - Tobacco Use Smoking Status: Never smoker Assessment/Plan All Active Problems (Last Updated 09/29/19 @ 08:29 by Cintia Ramos) Diarrhea (Acute) Metabolic acidosis (Acute) Non anion gap acidosis likely from GI HC03 loss Improved with isotonic HC03 drip Will continue the same rate until HC03 is 20 hypokalemia. due to GI losses/HC03 drip. replaced PRN Will continue to follow Please call if any question at [phone] Ignacia Smith MD
[2020-03-26] VITALS (10 sets, daily range): BP systolic 103–124; BP diastolic 53–74; PULSE 62–72; RESP 16–20; TEMP 36.3–36.8; O2SAT 98–100
[2020-03-26 06:52] LABS: Hematocrit 23.4 % (40-54); Hemoglobin 7.8 g/dL (13.0-16.5); Mean Corp Hgb Conc 33.3 g/dL (32-36); Mean Corpuscular Hgb 30.2 pg (27.0-32.0); Mean Corpuscular Volume 90.7 fL (80-94); Mean Platelet Vol. 9.7 fl (6.2-12.0); Platelet Count 103 K/mm3 (150-450); RBC Distribution Width CV 17.2 % (11.6-14.6); RBC Distribution Width SD 55.6 fl (35.1-43.9); Red Blood Count 2.58 M/mm3 (4.6-6.2); White Blood Count 3.3 K/mm3 (4.4-11.0)
--- NOTE | 2020-03-26 07:09 | PN_ITS ---
Patient Problems: Active and Suspected Problems (Last Updated 09/29/19 @ 08:29 by Cintia Ramos) Diarrhea (Acute) Metabolic acidosis (Acute) Subjective: The patient was seen and examined at the bedside this morning. Events from the last 24 hours have been reviewed. The patient is currently afebrile, hemodynamically stable and maintaining appropriate oxygen saturations on room air. Hemoglobin this morning was noted to be 7.8 g/dL. The patient continues to have a significant amount of GI output. Objective: The patient's most recent lab work, culture data and imaging studies have all been personally reviewed. C. difficile was negative. Enteric panel was negative. Stool for occult blood was positive. - Physical Exam Vitals/I&O's: Vital Signs Temp Pulse Resp BP Pulse Ox 98.0 F 72 16 118/74 98 03/26/20 02:15 03/26/20 03:00 03/26/20 02:15 03/26/20 02:15 03/26/20 02:15 Oxygen Flow Rate (L/min) 3 Oxygen Delivery Method Room Air Weight: 112 lb 14.027 oz Body Mass Index (BMI) 15.6 Intake and Output for Last 24 Hours 03/24/20 03/25/20 03/26/20 23:59 23:59 23:59 Intake Total 8098.33 / 8198.33 5473.33 / 6813.33 3800.00 / 3800.00 Output Total 2800 / 2800 Balance 5298.33 / 5398.33 5473.33 / 6813.33 3800.00 / 3800.00 General: Alert, Cooperative, - - Frail and cachectic in appearance HEENT: Atraumatic, Normocephalic Oral: No Gingival or Mucosal Lesions/ Ulcerations Neck: Supple, No Nodes, Trachea Midline Lungs: Normal air movement Cardiovascular: Regular rate, Regular Rhythm Abdomen: Bowel Sounds Present, Soft, Non Tender Extremities: No clubbing, No cyanosis, No edema Skin: - - No significant change from previous Musculoskeletal: Cachexia, Muscle Wasting Lymphatic: No Cervical, Supraclavicular, or Inguinal Adenopathy Neurological: Cranial nerves II-XII grossly intact, Neuro grossly intact Psych/Mental Status: Flat Affect Labs (Last 48 Hours) 03/23/20 03/24/20 03/24/20 14:50 00:10 03:30 WBC RBC Hgb Hct MCV MCH MCHC RDW Std Deviation RDW Coeff of Emil Plt Count MPV Diff Path Review Sodium Potassium Chloride Carbon Dioxide Anion Gap BUN Creatinine Estim Creat Clear Calc Est GFR (MDRD) Af Amer Est GFR (MDRD) Non-Af BUN/Creatinine Ratio Glucose Calcium Phosphorus Magnesium Iron TIBC Iron Saturation Ferritin Total Bilirubin AST ALT Alkaline Phosphatase Total Protein Albumin Globulin Albumin/Globulin Ratio TSH Free T4 0.60 L Stl Giardia Antigen Negative Crossmatch See Detail 03/24/20 03/24/20 03/24/20 03:36 03:36 13:50 WBC RBC Hgb 10.2 L Hct 31.0 L MCV MCH MCHC RDW Std Deviation RDW Coeff of Emil Plt Count MPV Diff Path Review Reviewed Sodium Potassium Chloride Carbon Dioxide Anion Gap BUN Creatinine Estim Creat Clear Calc Est GFR (MDRD) Af Amer Est GFR (MDRD) Non-Af BUN/Creatinine Ratio Glucose Calcium Phosphorus Magnesium Iron 69 TIBC 260 Iron Saturation 26.5 Ferritin 159 Total Bilirubin AST ALT Alkaline Phosphatase Total Protein Albumin Globulin Albumin/Globulin Ratio TSH 24.10 H Free T4 Stl Giardia Antigen Crossmatch 03/24/20 03/24/20 03/24/20 13:50 16:15 20:30 WBC RBC Hgb Hct MCV MCH MCHC RDW Std Deviation RDW Coeff of Emil Plt Count MPV Diff Path Review Sodium 140 139 144 Potassium 3.2 L 4.0 4.3 Chloride 122 H 123 H 126 H Carbon Dioxide 10.0 L 9.0 L* 8.0 L* Anion Gap 8 7 10 BUN 70 H 69 H 66 H Creatinine 1.43 H 1.40 H 1.31 H Estim Creat Clear Calc 46.89 47.89 51.19 Est GFR (MDRD) Af Amer 71 73 78 Est GFR (MDRD) Non-Af 59 L 60 65 BUN/Creatinine Ratio 49.0 H 49.3 H 50.4 H Glucose 106 84 124 H Calcium 7.4 L 7.7 L 7.5 L Phosphorus Magnesium Iron TIBC Iron Saturation Ferritin Total Bilirubin AST ALT Alkaline Phosphatase Total Protein Albumin Globulin Albumin/Globulin Ratio TSH Free T4 Stl Giardia Antigen Crossmatch 03/25/20 03/25/20 03/25/20 04:17 06:25 06:25 WBC 3.8 L RBC 2.84 L Hgb 8.3 L Hct 25.5 L MCV 89.8 MCH 29.2 MCHC 32.5 RDW Std Deviation 53.8 H RDW Coeff of Emil 16.5 H Plt Count 104 L MPV 9.3 Diff Path Review Sodium 140 140 Potassium 3.7 3.6 Chloride 122 H 115 H Carbon Dioxide 11.0 L 12.0 L Anion Gap 7 13 BUN 60 H 57 H Creatinine 1.32 H 1.35 H Estim Creat Clear Calc 50.80 49.67 Est GFR (MDRD) Af Amer 78 76 Est GFR (MDRD) Non-Af 64 63 BUN/Creatinine Ratio 45.5 H 42.2 H Glucose 112 H 106 Calcium 7.6 L 7.7 L Phosphorus 2.7 Magnesium 1.8 Iron TIBC Iron Saturation Ferritin Total Bilirubin 0.60 AST 44 H ALT 39 Alkaline Phosphatase 148 H Total Protein 6.4 Albumin 2.4 L Globulin 4.0 Albumin/Globulin Ratio 0.6 L TSH Free T4 Stl Giardia Antigen Crossmatch 03/25/20 03/26/20 03/26/20 11:20 06:33 06:33 WBC 3.3 L RBC 2.58 L Hgb 7.8 L Hct 23.4 L MCV 90.7 MCH 30.2 MCHC 33.3 RDW Std Deviation 55.6 H RDW Coeff of Emil 17.2 H Plt Count 103 L MPV 9.7 Diff Path Review Sodium 142 Pending Potassium 3.4 L Pending Chloride 121 H Pending Carbon Dioxide 13.0 L Pending Anion Gap 8 Pending BUN 55 H Pending Creatinine 1.22 Pending Estim Creat Clear Calc 58.30 Est GFR (MDRD) Af Amer 85 Pending Est GFR (MDRD) Non-Af 70 Pending BUN/Creatinine Ratio 45.1 H Pending Glucose 111 H Pending Calcium 7.7 L Pending Phosphorus Pending Magnesium Iron TIBC Iron Saturation Ferritin Total Bilirubin Pending AST Pending ALT Pending Alkaline Phosphatase Pending Total Protein Pending Albumin Pending Globulin Albumin/Globulin Ratio TSH Free T4 Stl Giardia Antigen Crossmatch Microbiology 03/24/20 00:10 Stool Enteric Bacteriology - Final 03/24/20 00:10 Stool Stool Occult Blood (APPLE) - Final Occult Blood Positive Clinical Impression(s) from Imaging Studies Chest X-Ray 03/23/20 15:25 IMPRESSION: Normal x-ray examination of the chest. Electronically Signed: Se Kearns MD at 16:05 EDT , Service support , Current Medications Acetaminophen (Tylenol) 650 mg PO Q6H PRN PRN PRN Reason: Pain Score 1-10/Temp > 100.7 F Dextrose (D50w Syringe) 0 gm IV X1 PRN; Protocol PRN Reason: Hypoglycemia Glucagon () 1 mg IM .X1 PRN PRN Reason: Hypoglycemia Pantoprazole Sodium 40 mg/ (Sodium Chloride) 110 mls @ 330 mls/hr IV Q12 [facility] Last Infusion: 03/25/20 22:53 Dose: Infused Documented by: Sodium Bicarbonate 150 meq/ (Dextrose) 1,150 mls @ 200 mls/hr IV .Q5H45M [facility] Last Admin: 03/26/20 06:41 Dose: 200 mls/hr Documented by: Loperamide HCl (Imodium Liquid) 2 mg PO Q4H PRN PRN PRN Reason: DIARRHEA/LOOSE STOOLS Last Admin: 03/24/20 10:46 Dose: 2 mg Documented by: Ondansetron HCl (Zofran) 4 mg IV Q8H PRN PRN PRN Reason: NAUSEA/VOMITING Potassium Chloride (K-Dur) 40 meq PO BIDCM [facility] Last Admin: 03/25/20 16:34 Dose: 40 meq Documented by: Sodium Chloride () 10 - 40 ml IV UD PRN PRN Reason: SALINE FLUSH Last Admin: 03/25/20 18:40 Dose: 10 ml Documented by: Medical Necessity - Tobacco Use Smoking Status: Never smoker Assessment/Plan All Active Problems (Last Updated 09/29/19 @ 08:29 by Cintia Ramos) Diarrhea (Acute) Metabolic acidosis (Acute) RECOMMENDATIONS: 1. Continue supplemental IV fluids with bicarbonate replacement per nephrology recommendations. 2. Monitor and replete electrolytes as needed. 3. Monitor blood counts daily. Plan to transfuse if hemoglobin drops below 7 g/dL. 4. Continue PPI therapy and loperamide. 5. The patient will require close interval follow-up with GI. IMPRESSIONS: 1. Metabolic acidosis likely secondary to GI losses in the setting of short bowel syndrome Slowly improving with bicarbonate containing supplemental fluids. Infectious work-up has been negative. The patient will be continued on twice daily PPI therapy along with loperamide. Fluids will be continued to offset GI losses. The patient ideally needs to be set up with a medical transport specialist to help manage his short bowel syndrome and nutritional deficiencies. If the patient is unable to tolerate p.o. intake and continues to have significant GI losses, he may need to be considered again for vascular access placement to facilitate TPN administration. 2. Acute kidney injury Improving. Likely prerenal in etiology and related to ongoing GI losses and subsequent intravascular volume depletion. Anticipate improvement with volume expansion. Continue to monitor urine output for now. No current indication for renal replacement therapy. 3. Normocytic anemia I suspect the patient's anemia is likely secondary to nutritional deficiencies and resultant poor iron stores. The patient did receive 2 units packed red blood cells with subsequent improvement in his anemia. Plan to continue to monitor H&H daily, with plans to transfuse if hemoglobin drops below 7 g/dL. He apparently regularly receives Injectafer as an outpatient. Protonix twice daily will be continued. 4. Hypothyroidism/protein calorie malnutrition/generalized weakness Complicates care, management, recovery and prognosis. Nutrition services is currently following. Continue home medications were indicated. This note was generated with [employer] dictation software. It may contain incorrect words, spelling, and punctuation that were not noted in checking the note before signing. Inpatient E&M: 52604 Subs Hosp L2
[2020-03-26 07:19] LABS: ALB/GLOB Ratio 0.6 RATIO (0.9-2.4); AST(SGOT) 35 U/L (15-37); Alanine Aminotransfer ALT/SGPT 36 U/L (16-61); Albumin, Serum 2.4 g/dL (3.2-5.0); Alkaline Phosphatase 133 U/L (45-117); Anion Gap 7 (5-15); BUN 37 mg/dL (7-18); BUN/Creat Ratio 29.6 RATIO (10-20); Calcium,Total 7.7 mg/dL (8.5-10.1); Chloride 120 mmol/L (98-107); Creatinine, Serum 1.25 mg/dL (0.70-1.30); EST Glomerular Filtration Rate 68 mL/min (>60); Est Glom Filt Rate - Afr Amer 83 mL/min (>60); Estimated Creatinine Clearance 57.46 ml/min; Globulin 3.7 g/dL (2.2-4.2); Glucose 116 mg/dL (74-106); Phosphorus 2.2 mg/dL (2.5-4.9); Potassium 3.7 mmol/L (3.5-5.1); Protein, Total 6.1 g/dL (6.4-8.2); Sodium Level 141 mmol/L (136-145)
[2020-03-26] MEDS: 0.9% Saline Lock 10 ML Syringe IV ×2 (10:45→22:23)
--- NOTE | 2020-03-26 12:46 | PCM.PROGNOTE ---
<Cathy Garcia - Last Filed: 03/26/20 12:55> Patient Problems: Active and Suspected Problems (Last Updated 09/29/19 @ 08:29 by Cintia Ramos) Diarrhea (Acute) Metabolic acidosis (Acute) Subjective: Patient seen and examined. Resting comfortably in bed. Patient denies current symptoms or complaints. Discussed plan of care. - Physical Exam Vitals/I&O's: Vital Signs Temp Pulse Resp BP Pulse Ox 97.8 F 70 16 124/66 H 98 03/26/20 08:15 03/26/20 08:15 03/26/20 08:15 03/26/20 08:15 03/26/20 08:15 Oxygen Flow Rate (L/min) 3 Oxygen Delivery Method Room Air Weight: 112 lb 14.027 oz Body Mass Index (BMI) 15.6 Intake and Output for Last 24 Hours 03/24/20 03/25/20 03/26/20 23:59 23:59 23:59 Intake Total 8098.33 / 8198.33 5473.33 / 6813.33 4440.00 / 4440.00 Output Total 2800 / 2800 Balance 5298.33 / 5398.33 5473.33 / 6813.33 4440.00 / 4440.00 General: Alert, Oriented x3, Cooperative HEENT: Atraumatic, PERRLA, EOMI, Normocephalic Neck: Supple, No JVD, Negative Carotid Bruits Lungs: Clear to auscultation, Normal air movement Cardiovascular: Regular rate, No murmurs Abdomen: Bowel Sounds Present, Soft, Non Tender Extremities: No clubbing, No cyanosis, No edema, Capillary Refill Less than 3 Seconds Skin: No rashes, No breakdown, - - Left upper extremity healing abrasion, prior staph infection Musculoskeletal: No Tenderness to Palpation of Joints or Extremities Neurological: Cranial nerves II-XII grossly intact, Neuro grossly intact Psych/Mental Status: Flat Affect Microbiology Past 72 Hours 03/24/20 00:10 Stool Enteric Bacteriology - Final 03/24/20 00:10 Stool Stool Occult Blood (APPLE) - Final Occult Blood Positive 03/24/20 00:10 Stool C. difficile DNA Amplification - Final Laboratory Results 03/24/20 00:10: Stl Giardia Antigen Negative 03/26/20 06:33: WBC 3.3 L, RBC 2.58 L, Hgb 7.8 L, Hct 23.4 L, MCV 90.7, MCH 30.2, MCHC 33.3, RDW Std Deviation 55.6 H, RDW Coeff of Emil 17.2 H, Plt Count 103 L, MPV 9.7 03/26/20 06:33: Sodium 141, Potassium 3.7, Chloride 120 H, Carbon Dioxide 14.0 L, Anion Gap 7, BUN 37 H, Creatinine 1.25, Estim Creat Clear Calc 57.46, Est GFR (MDRD) Af Amer 83, Est GFR (MDRD) Non-Af 68, BUN/Creatinine Ratio 29.6 H, Glucose 116 H, Calcium 7.7 L, Phosphorus 2.2 L, Total Bilirubin 0.40, AST 35, ALT 36, Alkaline Phosphatase 133 H, Total Protein 6.1 L, Albumin 2.4 L, Globulin 3.7, Albumin/Globulin Ratio 0.6 L Current Medications Acetaminophen (Tylenol) 650 mg PO Q6H PRN PRN PRN Reason: Pain Score 1-10/Temp > 100.7 F Dextrose (D50w Syringe) 0 gm IV X1 PRN; Protocol PRN Reason: Hypoglycemia Glucagon () 1 mg IM .X1 PRN PRN Reason: Hypoglycemia Pantoprazole Sodium 40 mg/ (Sodium Chloride) 110 mls @ 330 mls/hr IV Q12 [facility] Last Infusion: 03/26/20 11:05 Dose: Infused Documented by: Sodium Bicarbonate 150 meq/ (Dextrose) 1,150 mls @ 200 mls/hr IV .Q5H45M [facility] Last Infusion: 03/26/20 11:17 Dose: 200 mls/hr Documented by: Loperamide HCl (Imodium Liquid) 2 mg PO Q4H PRN PRN PRN Reason: DIARRHEA/LOOSE STOOLS Last Admin: 03/24/20 10:46 Dose: 2 mg Documented by: Ondansetron HCl (Zofran) 4 mg IV Q8H PRN PRN PRN Reason: NAUSEA/VOMITING Potassium Chloride (K-Dur) 40 meq PO BIDCM [facility] Last Admin: 03/26/20 09:05 Dose: 40 meq Documented by: Sodium Chloride () 10 - 40 ml IV UD PRN PRN Reason: SALINE FLUSH Last Admin: 03/26/20 10:45 Dose: 10 ml Documented by: Medical Necessity - Tobacco Use Smoking Status: Never smoker Assessment/Plan All Active Problems (Last Updated 09/29/19 @ 08:29 by Cintia Ramos) Diarrhea (Acute) Metabolic acidosis (Acute) 1. Acute diarrhea secondary to short gut syndrome, history of gastroschisis-initially discussed transfer to [facility] for GI evaluation however patient's mother declined transfer. Patient has history of intermittent chronic diarrhea. C. difficile and enteric bacteriology negative. Continue PPI, loperamide. Fluid resuscitation. Improving. 2. Non-anion gap metabolic acidosis-secondary to #1. Nephrology following. On bicarb drip. 3. Electrolyte disturbance with hypokalemia, hypomagnesia-secondary to #1. Replace per protocol. 4. Acute kidney injury-secondary to 1. Resolved. Trend BMP. 5. Recent left upper extremity MSSA cellulitis-completed course of cefazolin. Does not appear acutely infected. 6. Acute on chronic normocytic anemia-status post 2 units PRBC. Now stable. Trend CBC. 7. Severe protein calorie malnutrition-secondary to malabsorption. Cachectic appearance. BMI 17. Dietitian consult. 8. Hypothyroidism-continue home levothyroxine regimen. DVT prophylaxis- SCDs This patient was seen by RONAK Kim under the supervision of Dr. Luu. <Kip Luu - Last Filed: 03/26/20 13:41> - Physical Exam Vitals/I&O's: Vital Signs Temp Pulse Resp BP Pulse Ox 97.3 F L 63 18 116/71 98 03/26/20 13:28 03/26/20 13:28 03/26/20 13:28 03/26/20 13:28 03/26/20 13:28 Oxygen Flow Rate (L/min) 3 Oxygen Delivery Method Room Air Weight: 51.2 kg Body Mass Index (BMI) 15.6 Intake and Output for Last 24 Hours 03/24/20 03/25/20 03/26/20 23:59 23:59 23:59 Intake Total 8098.33 / 8198.33 5473.33 / 6813.33 5140.00 / 5140.00 Output Total 2800 / 2800 Balance 5298.33 / 5398.33 5473.33 / 6813.33 5140.00 / 5140.00 Microbiology Past 72 Hours 03/24/20 00:10 Stool Enteric Bacteriology - Final 03/24/20 00:10 Stool Stool Occult Blood (APPLE) - Final Occult Blood Positive 03/24/20 00:10 Stool C. difficile DNA Amplification - Final Laboratory Results 03/24/20 00:10: Stl Giardia Antigen Negative 03/26/20 06:33: WBC 3.3 L, RBC 2.58 L, Hgb 7.8 L, Hct 23.4 L, MCV 90.7, MCH 30.2, MCHC 33.3, RDW Std Deviation 55.6 H, RDW Coeff of Emil 17.2 H, Plt Count 103 L, MPV 9.7 03/26/20 06:33: Sodium 141, Potassium 3.7, Chloride 120 H, Carbon Dioxide 14.0 L, Anion Gap 7, BUN 37 H, Creatinine 1.25, Estim Creat Clear Calc 57.46, Est GFR (MDRD) Af Amer 83, Est GFR (MDRD) Non-Af 68, BUN/Creatinine Ratio 29.6 H, Glucose 116 H, Calcium 7.7 L, Phosphorus 2.2 L, Total Bilirubin 0.40, AST 35, ALT 36, Alkaline Phosphatase 133 H, Total Protein 6.1 L, Albumin 2.4 L, Globulin 3.7, Albumin/Globulin Ratio 0.6 L Current Medications Acetaminophen (Tylenol) 650 mg PO Q6H PRN PRN PRN Reason: Pain Score 1-10/Temp > 100.7 F Dextrose (D50w Syringe) 0 gm IV X1 PRN; Protocol PRN Reason: Hypoglycemia Glucagon () 1 mg IM .X1 PRN PRN Reason: Hypoglycemia Pantoprazole Sodium 40 mg/ (Sodium Chloride) 110 mls @ 330 mls/hr IV Q12 [facility] Last Infusion: 03/26/20 11:05 Dose: Infused Documented by: Sodium Bicarbonate 150 meq/ (Dextrose) 1,150 mls @ 200 mls/hr IV .Q5H45M [facility] Last Infusion: 03/26/20 11:17 Dose: 200 mls/hr Documented by: Loperamide HCl (Imodium Liquid) 2 mg PO Q4H PRN PRN PRN Reason: DIARRHEA/LOOSE STOOLS Last Admin: 03/24/20 10:46 Dose: 2 mg Documented by: Ondansetron HCl (Zofran) 4 mg IV Q8H PRN PRN PRN Reason: NAUSEA/VOMITING Potassium Chloride (K-Dur) 40 meq PO BIDCM [facility] Last Admin: 03/26/20 09:05 Dose: 40 meq Documented by: Sodium Chloride () 10 - 40 ml IV UD PRN PRN Reason: SALINE FLUSH Last Admin: 03/26/20 10:45 Dose: 10 ml Documented by: Assessment/Plan This patient was seen in conjunction with RONAK Kim . I have independently interviewed and examined the patient and reviewed pertinent historical, laboratory, and other data. Please refer to RONAK Kim note for details of this patient's presentation, findings, and recommendations. I have reviewed RONAK Kim note and concur with documented findings. In brief, patient is a 48-year-old gentleman admitted with abdominal pain. Found to be in acute kidney injury suspected to be secondary to urinary retention Franklin catheter was placed admitted to monitored bed for further management 03/25/2020: Patient seen kidney function did worsen, consult subsequently placed to nephrology Physical Examination: GENERAL: cooperative HEENT: Atraumatic; EYES; Anicteric, Normal Conjunctiva NECK; supple, normal thyroid, RESPIRATORY: Diminished to auscultation CARDIOVASCULAR: Regular S1 S2, GI: soft, normoactive bowel sounds, : No Renal angle tenderness; EXTREMITIES: No edema, no clubbing, MUSCULOSKELETAL: muscle waisting NEURO: Awake; no lateralizing signs. SKIN: No Rash PSYCH; Flat affect Assessment: 1. Acute diarrhea secondary to short gut syndrome 2. Acute noniron gap metabolic acidosis 3. Hypokalemia 4. Hypomagnesemia 5. Recent skin infection with MSSA 6. Anemia 7. History of gastroschisis with subsequent short gut syndrome 8. Severe protein calorie malnutrition as evidenced by muscle wasting as well as low BMI 9. DVT prophylaxis Recommendations: 1. I have discussed the results of my overview and impressions with the patient 2. Options for management were reviewed Inpatient E&M: 52266 Subs Hosp L2
[2020-03-27 03:32] VITALS: PULSE 78
[2020-03-27 05:16] VITALS: BP 111/66; PULSE 65; RESP 20; TEMP 36.8; O2SAT 98
[2020-03-27 06:38] LABS: Hematocrit 23.3 % (40-54); Hemoglobin 7.7 g/dL (13.0-16.5); Mean Corpuscular Hgb 30.7 pg (27.0-32.0); Mean Corpuscular Volume 92.8 fL (80-94); Mean Platelet Vol. 9.3 fl (6.2-12.0); Platelet Count 105 K/mm3 (150-450); RBC Distribution Width CV 17.7 % (11.6-14.6); RBC Distribution Width SD 58.9 fl (35.1-43.9); Red Blood Count 2.51 M/mm3 (4.6-6.2); White Blood Count 3.6 K/mm3 (4.4-11.0)
[2020-03-27 07:03] LABS: ALB/GLOB Ratio 0.6 RATIO (0.9-2.4); AST(SGOT) 26 U/L (15-37); Alanine Aminotransfer ALT/SGPT 31 U/L (16-61); Albumin, Serum 2.2 g/dL (3.2-5.0); Alkaline Phosphatase 119 U/L (45-117); Anion Gap 6 (5-15); BUN 31 mg/dL (7-18); BUN/Creat Ratio 23.5 RATIO (10-20); Calcium,Total 7.6 mg/dL (8.5-10.1); Chloride 113 mmol/L (98-107); Creatinine, Serum 1.32 mg/dL (0.70-1.30); EST Glomerular Filtration Rate 64 mL/min (>60); Est Glom Filt Rate - Afr Amer 78 mL/min (>60); Estimated Creatinine Clearance 57.71 ml/min; Globulin 3.7 g/dL (2.2-4.2); Glucose 101 mg/dL (74-106); Magnesium 1.4 mg/dL (1.6-2.6); Phosphorus 2.9 mg/dL (2.5-4.9); Protein, Total 5.9 g/dL (6.4-8.2); Sodium Level 137 mmol/L (136-145)
[2020-03-27 07:05] VITALS: PULSE 60
[2020-03-27 09:38] VITALS: BP 106/61; PULSE 76; RESP 17; TEMP 36.4; O2SAT 99
--- NOTE | 2020-03-27 09:55 | PCM.PN.PUL ---
Patient Problems: Active and Suspected Problems (Last Updated 09/29/19 @ 08:29 by Cintia Ramos) Diarrhea (Acute) Metabolic acidosis (Acute) Subjective: Patient did okay overnight. Patient continues to take p.o. and is slowly feeling subjectively improved. Patient reports GI output is improving. Patient does remain on room air. No bleeding has been reported. - Physical Exam Vitals/I&O's: Vital Signs Temp Pulse Resp BP Pulse Ox 36.4 C L 76 17 106/61 99 03/27/20 09:38 03/27/20 09:38 03/27/20 09:38 03/27/20 09:38 03/27/20 09:38 Oxygen Flow Rate (L/min) 3 Oxygen Delivery Method Room Air Weight: 54.3 kg Body Mass Index (BMI) 15.6 Intake and Output for Last 24 Hours 03/25/20 03/26/20 03/27/20 23:59 23:59 23:59 Intake Total 5473.33 / 6813.33 7856.67 / 7856.67 1163.33 / 1163.33 Output Total 0 / 0 Balance 5473.33 / 6813.33 7856.67 / 7856.67 1163.33 / 1163.33 General: Alert, Oriented x3, Cooperative, No apparent distress, - - Appears older than stated age. Thin build. HEENT: Atraumatic, PERRLA, EOMI, Normocephalic, - - No scleral icterus or injection noted Oral: Moist Mucosa, No Gingival or Mucosal Lesions/ Ulcerations Neck: Supple, No JVD, No Nodes, Trachea Midline Lungs: Normal air movement, No rhonchi, No wheeze, No rales, - - Symmetric expansion. No dullness to percussion. Cardiovascular: Regular rate, Regular Rhythm, Normal S1, Normal S2, No murmurs, No rub noted, No Gallop Abdomen: Bowel Sounds Present, Soft, Non Tender, Non-Distended Extremities: No clubbing, No cyanosis, No edema Skin: No rashes, No breakdown Musculoskeletal: No Tenderness to Palpation of Joints or Extremities Lymphatic: No Cervical, Supraclavicular, or Inguinal Adenopathy Neurological: Cranial nerves II-XII grossly intact, Neuro grossly intact, Motor Exam 5/5 strength throughout Psych/Mental Status: Alert and oriented to time, place, person, mood and affect Microbiology Past 72 Hours 03/24/20 00:10 Stool Enteric Bacteriology - Final 03/24/20 00:10 Stool Stool Occult Blood (APPLE) - Final Occult Blood Positive Laboratory Results 03/27/20 06:30: WBC 3.6 L, RBC 2.51 L, Hgb 7.7 L, Hct 23.3 L, MCV 92.8, MCH 30.7, MCHC 33.0, RDW Std Deviation 58.9 H, RDW Coeff of Emil 17.7 H, Plt Count 105 L, MPV 9.3 03/27/20 06:30: Sodium 137, Potassium 4.0, Chloride 113 H, Carbon Dioxide 18.0 L, Anion Gap 6, BUN 31 H, Creatinine 1.32 H, Estim Creat Clear Calc 57.71, Est GFR (MDRD) Af Amer 78, Est GFR (MDRD) Non-Af 64, BUN/Creatinine Ratio 23.5 H, Glucose 101, Calcium 7.6 L, Phosphorus 2.9, Magnesium 1.4 L, Total Bilirubin 0.40, AST 26, ALT 31, Alkaline Phosphatase 119 H, Total Protein 5.9 L, Albumin 2.2 L, Globulin 3.7, Albumin/Globulin Ratio 0.6 L Current Medications Acetaminophen (Tylenol) 650 mg PO Q6H PRN PRN PRN Reason: Pain Score 1-10/Temp > 100.7 F Dextrose (D50w Syringe) 0 gm IV X1 PRN; Protocol PRN Reason: Hypoglycemia Glucagon () 1 mg IM .X1 PRN PRN Reason: Hypoglycemia Pantoprazole Sodium 40 mg/ (Sodium Chloride) 110 mls @ 330 mls/hr IV Q12 [facility] Last Infusion: 03/26/20 23:12 Dose: Infused Documented by: Sodium Bicarbonate 150 meq/ (Dextrose) 1,150 mls @ 200 mls/hr IV .Q5H45M [facility] Last Admin: 03/27/20 05:16 Dose: 200 mls/hr Documented by: Magnesium Sulfate 2 gm/ Sodium (Chloride) 104 mls @ 52 mls/hr IV X1 ONE Stop: 03/27/20 11:59 Loperamide HCl (Imodium Liquid) 2 mg PO Q4H PRN PRN PRN Reason: DIARRHEA/LOOSE STOOLS Last Admin: 03/24/20 10:46 Dose: 2 mg Documented by: Ondansetron HCl (Zofran) 4 mg IV Q8H PRN PRN PRN Reason: NAUSEA/VOMITING Potassium Chloride (K-Dur) 40 meq PO BIDCM [facility] Last Admin: 03/26/20 17:32 Dose: 40 meq Documented by: Sodium Chloride () 10 - 40 ml IV UD PRN PRN Reason: SALINE FLUSH Last Admin: 03/26/20 22:23 Dose: 10 ml Documented by: Medical Necessity - Tobacco Use Smoking Status: Never smoker Assessment/Plan All Active Problems (Last Updated 09/29/19 @ 08:29 by Cintia Ramos) Diarrhea (Acute) Metabolic acidosis (Acute) RECOMMENDATIONS: 1. Continue supplemental IV fluids with bicarbonate replacement per nephrology recommendations. 2. Monitor and replete electrolytes as needed. 3. Monitor blood counts daily. Plan to transfuse if hemoglobin drops below 7 g/dL. 4. Continue PPI therapy and loperamide. 5. The patient will require close interval follow-up with GI. IMPRESSIONS: 1. Metabolic acidosis likely secondary to GI losses in the setting of short bowel syndrome Slowly improving with bicarbonate containing supplemental fluids. Infectious work-up has been negative. The patient will be continued on twice daily PPI therapy along with loperamide. Fluids will be continued to offset GI losses. Patient likely requires teaching on dietary modifications such as medium chain fatty acids. Patient may benefit from a short gut syndrome clinic as he will have high risk of recurrence with current findings. 2. Acute kidney injury A, but not clinically significant. Likely prerenal in etiology and related to ongoing GI losses and subsequent intravascular volume depletion. Anticipate improvement with volume expansion. Continue to monitor urine output for now. No current indication for renal replacement therapy. 3. Pancytopenia Likely secondary to nutritional deficiencies and resultant poor iron stores. The patient did receive 2 units packed red blood cells with subsequent improvement in his anemia. Plan to continue to monitor H&H daily, with plans to transfuse if hemoglobin drops below 7 g/dL. He apparently regularly receives Injectafer as an outpatient. Protonix twice daily will be continued. 4. Hypothyroidism/protein calorie malnutrition/generalized weakness Complicates care, management, recovery and prognosis. Nutrition services is currently following. Continue home medications were indicated. Inpatient E&M: 28760 Subs Hosp L2
[2020-03-27] MEDS: 0.9% Saline Lock 10 ML Syringe IV (10:02)
[2020-03-27 11:19] VITALS: PULSE 64
--- NOTE | 2020-03-27 11:46 | PCM.DC ---
- Discharge Diagnoses Current Active Problems: Current Active and Chronic Problems (Last Updated 09/29/19 @ 08:29 by Cintia Ramos) Diarrhea (Acute) Metabolic acidosis (Acute) You will use the following diet at home:: No restrictions Discharge Activity: Return to Normal Activity Call your doctor if you observe: Shortness of breath, Dizziness, Fainting spells, Chest pain, - - Intractable diarrhea Allergies/Adverse Reactions: Allergies erythromycin base Adverse Reaction (Severe, Verified 03/23/20 14:07) Vomiting Macrolide Antibiotics Adverse Reaction (Severe, Verified 03/23/20 14:07) Vomiting ALL ORAL ANTIBIOTICS Allergy (Uncoded 03/23/20 14:08) NEEDS FOLLOW-UP VIT K Allergy (Uncoded 03/23/20 14:08) Chest tightness Medications to take at Discharge Ferric Carboxymaltose [Injectafer] 750 mg IV UD 09/23/19 Levothyroxine Sodium [Unithroid] 75 mcg PO DAILY 09/23/19 Folic Acid 1 mg PO DAILY 09/28/19 Loperamide [Imodium] 2 mg PO Q4H PRN PRN #60 cap 03/27/20 Pantoprazole Sodium [Protonix] 40 mg PO DAILY #30 tab 03/27/20 Potassium Chloride [K-Dur] 40 meq PO DAILY #60 tab 03/27/20 The following prescriptions were given: Loperamide [Imodium] 2 mg PO Q4H PRN PRN #60 cap PRN Reason: Diarrhea [facility] Potassium Chloride [K-Dur] 40 meq PO DAILY #60 tab [facility] Pantoprazole Sodium [Protonix] 40 mg PO DAILY #30 tab [facility]: [facility] Primary Care Physician: Care Physician,No Primary [Primary Care Provider] - Please follow up with your Primary Care Physician in: 1 Week Test Results: Test results from this visit will be discussed in further detail at your follow-up appointment, if applicable. Please Follow Up With: Dr. Abelardo PISANO When: As scheduled Proposed Discharge Date: 03/27/20
--- NOTE | 2020-03-27 13:42 | PCA ---
Addendum entered by Ambreen Cárdenas 03/27/20 14:04: List of area PCPs given with discharge paperwork. Original Note: Faxed referral to [facility], , per Cathy Garcia. Copy placed in pt chart.
--- NOTE | 2020-03-27 13:57 | DS.PCM_ITS ---
<Cathy Garcia - Last Filed: 03/27/20 14:06> Discharge Date and Diagnosis Date of Admission: 03/23/20 Date of Discharge: 03/27/20 - Primary Discharge Diagnosis Acute Problems: Active Problems (Last Updated 09/29/19 @ 08:29 by Cintia Ramos) 1. Acute diarrhea secondary to short gut syndrome, history of gastroschisis 2. Non-anion gap metabolic acidosis-secondary to #1. 3. Electrolyte disturbance with hypokalemia, hypomagnesia-secondary to #1. 4. Acute kidney injury-secondary to #1. 5. Recent left upper extremity MSSA cellulitis 6. Acute on chronic normocytic anemia 7. Severe protein calorie malnutrition-secondary to malabsorption. 8. Hypothyroidism - Secondary Discharge Diagnosis Chronic Problems: Chronic Problems (Last Updated 09/29/19 @ 08:29 by Cintia Ramos) Anemia (Chronic) Hypothyroidism (Chronic) Gastroschisis (Chronic) Iron deficiency (Chronic) Short bowel syndrome (Chronic) B12 deficiency anemia (Chronic) Thrombocytopenia (Chronic) Postresectional malabsorption syndrome (Chronic) Chronic GI bleeding (Chronic) Hospital Course and Treatment Imaging Results: Diagnostic Data Chest X-Ray 03/23/20 15:25 IMPRESSION: Normal x-ray examination of the chest. Electronically Signed: Se Kearns MD at 16:05 EDT , Service support , Dr. Acosta- Pulmonary Medicine Dr. Kaur- Nephrology Operations: None Procedures: None Summary of Care Provided: The patient is a 40 year old M admitted 03/23/2020 due to diarrhea. 1. Acute diarrhea secondary to short gut syndrome, history of gastroschisis- Patient has history of intermittent chronic diarrhea with frequent hospita lizations. C. difficile and enteric bacteriology negative. Continue PPI, loperamide at discharge. Diarrhea significantly improved. Patient requested referral to GI specialist, Dr. Abelardo Castillo with [facility]. Referral made during admission. Patient will follow closely with GI. 2. Non-anion gap metabolic acidosis-secondary to #1. Nephrology consulted during admission. Placed on bicarb drip during admission. Bicarb on admission 7, improved to 18 at discharge. 3. Electrolyte disturbance with hypokalemia, hypomagnesia-secondary to #1. Replaced per protocol. Continue potassium, magnesium supplementation at discharge. 4. Acute kidney injury-secondary to #1. Resolved. 5. Recent left upper extremity MSSA cellulitis-completed course of cefazolin. Does not appear acutely infected. 6. Acute on chronic normocytic anemia-status post 2 units PRBC. Now stable. Patient has seen hematology in the past due to chronic anemia related to malabsorption. Outpatient iron infusions. Continue outpatient follow-up and repeat labs. 7. Severe protein calorie malnutrition-secondary to malabsorption. Cachectic appearance. BMI 17. Dietitian consulted during admission with dietary recommendations. 8. Hypothyroidism-continue home levothyroxine regimen. General: Alert, Oriented x3, Cooperative HEENT: Atraumatic, PERRLA, EOMI, Normocephalic Neck: Supple, No JVD, Negative Carotid Bruits Lungs: Clear to auscultation, Normal air movement Cardiovascular: Regular rate, No murmurs Abdomen: Bowel Sounds Present, Soft, Non Tender Extremities: No clubbing, No cyanosis, No edema, Capillary Refill Less than 3 Seconds Skin: No rashes, No breakdown, - - Left upper extremity healing abrasion, prior staph infection Musculoskeletal: No Tenderness to Palpation of Joints or Extremities Neurological: Cranial nerves II-XII grossly intact, Neuro grossly intact Psych/Mental Status: Flat Affect Patient seen and examined prior to discharge. Physical assessment as noted above. Patient is stable for discharge with follow up recommendations as noted above. This patient was seen by RONAK Kim under the supervision of Dr. Carrillo. - Physical Exam Vitals/I&O's: Vital Signs Temp Pulse Resp BP Pulse Ox 97.6 F L 64 17 106/61 99 03/27/20 09:38 03/27/20 11:19 03/27/20 09:38 03/27/20 09:38 03/27/20 09:38 Oxygen Flow Rate (L/min) 3 Oxygen Delivery Method Room Air Weight: 119 lb 11.376 oz Body Mass Index (BMI) 15.6 Intake and Output for Last 24 Hours 03/25/20 03/26/20 03/27/20 23:59 23:59 23:59 Intake Total 5473.33 / 6813.33 7856.67 / 7856.67 2576.66 / 2576.66 Output Total 0 / 0 Balance 5473.33 / 6813.33 7856.67 / 7856.67 2576.66 / 2576.66 Microbiology Past 72 Hours 03/24/20 00:10 Stool Enteric Bacteriology - Final Laboratory Results 03/27/20 06:30: WBC 3.6 L, RBC 2.51 L, Hgb 7.7 L, Hct 23.3 L, MCV 92.8, MCH 30.7, MCHC 33.0, RDW Std Deviation 58.9 H, RDW Coeff of Emil 17.7 H, Plt Count 105 L, MPV 9.3 03/27/20 06:30: Sodium 137, Potassium 4.0, Chloride 113 H, Carbon Dioxide 18.0 L , Anion Gap 6, BUN 31 H, Creatinine 1.32 H, Estim Creat Clear Calc 57.71, Est GFR (MDRD) Af Amer 78, Est GFR (MDRD) Non-Af 64, BUN/Creatinine Ratio 23.5 H, Glucose 101, Calcium 7.6 L, Phosphorus 2.9, Magnesium 1.4 L, Total Bilirubin 0.40, AST 26, ALT 31, Alkaline Phosphatase 119 H, Total Protein 5.9 L, Albumin 2.2 L, Globulin 3.7, Albumin/Globulin Ratio 0.6 L Current Medications Acetaminophen (Tylenol) 650 mg PO Q6H PRN PRN PRN Reason: Pain Score 1-10/Temp > 100.7 F Dextrose (D50w Syringe) 0 gm IV X1 PRN; Protocol PRN Reason: Hypoglycemia Glucagon () 1 mg IM .X1 PRN PRN Reason: Hypoglycemia Pantoprazole Sodium 40 mg/ (Sodium Chloride) 110 mls @ 330 mls/hr IV Q12 [facility] Last Infusion: 03/27/20 10:20 Dose: Infused Documented by: Loperamide HCl (Imodium Liquid) 2 mg PO Q4H PRN PRN PRN Reason: DIARRHEA/LOOSE STOOLS Last Admin: 03/24/20 10:46 Dose: 2 mg Documented by: Ondansetron HCl (Zofran) 4 mg IV Q8H PRN PRN PRN Reason: NAUSEA/VOMITING Potassium Chloride (K-Dur) 40 meq PO BIDCM [facility] Last Admin: 03/27/20 09:58 Dose: 40 meq Documented by: Sodium Chloride () 10 - 40 ml IV UD PRN PRN Reason: SALINE FLUSH Last Admin: 03/27/20 10:02 Dose: 10 ml Documented by: Discharge Diet: No Restrictions Discharge Activity: Return to Normal Activity Call your doctor if you observe: Shortness of breath, Dizziness, Fainting spells, Chest pain, - - Intractable diarrhea Home Medications: Medications to take at Discharge Ferric Carboxymaltose [Injectafer] 750 mg IV UD 09/23/19 Levothyroxine Sodium [Unithroid] 75 mcg PO DAILY 09/23/19 Folic Acid 1 mg PO DAILY 09/28/19 Loperamide [Imodium] 2 mg PO Q4H PRN PRN #60 cap 03/27/20 Magnesium Oxide [Mag-Ox 400] 400 mg PO BID #60 tab 03/27/20 Pantoprazole Sodium [Protonix] 40 mg PO DAILY #30 tab 03/27/20 Potassium Chloride [K-Dur] 40 meq PO DAILY #60 tab 03/27/20 Following Prescrptions Were Given to Patient: Loperamide [Imodium] 2 mg PO Q4H PRN PRN #60 cap PRN Reason: Diarrhea Transmission Status: Received by [facility] Potassium Chloride [K-Dur] 40 meq PO DAILY #60 tab Transmission Status: Received by [facility] Magnesium Oxide [Mag-Ox 400] 400 mg PO BID #60 tab Transmission Status: Received by [facility] Pantoprazole Sodium [Protonix] 40 mg PO DAILY #30 tab Transmission Status: Received by [facility] Primary Care Physician: Care Physician,No Primary [Primary Care Provider] - Please follow up with your Primary Care Physician in: 1 Week Please Follow Up With: Dr. Abelardo Castillo - GI When: As scheduled Disposition: Home Minutes spent on discharge:: 35 Patient Condition:: Stable Medical Necessity - Tobacco Use Smoking Status: Never smoker Meaningful Use Info Meaningful Use Diagnoses (Choose all that apply): None applicable <Oskar Carrillo - Last Filed: 03/27/20 15:15> Discharge Date and Diagnosis - Secondary Discharge Diagnosis Chronic Problems: Chronic Problems (Last Updated 09/29/19 @ 08:29 by Cintia Ramos) Anemia (Chronic) Hypothyroidism (Chronic) Gastroschisis (Chronic) Iron deficiency (Chronic) Short bowel syndrome (Chronic) B12 deficiency anemia (Chronic) Thrombocytopenia (Chronic) Postresectional malabsorption syndrome (Chronic) Chronic GI bleeding (Chronic) Hospital Course and Treatment Operations: None Procedures: None Summary of Care Provided: Patient seen and examined independently. Data reviewed. I agree with the above note by the nurse practitioner. The patient is a 40 year old M presents with diarrhea has history of short gut syndrome. Patient has short gut syndrome due to his history of gastroschisis. Patient also had electrolyte abnormalities. Patient had, acute kidney injury with a creatinine 1.6. Patient was put on a bicarb drip and did receive IV fluids and creatinine related proved much. Patient's metabolic acidosis did improve. Patient had to have requested seeing a Dr. Castillo, of gastroenterology in [place]. Requested a referral be done here. Less than the patient's is here established with mobile under his breath questions. When asked him to clarify he said that was asking him a lot of. Further his reluctance to answer questions but as patient is doing better patient will be discharged in stable in condition. [] - Physical Exam Vitals/I&O's: Vital Signs Temp Pulse Resp BP Pulse Ox 36.6 C 61 15 105/60 99 03/27/20 14:40 03/27/20 14:40 03/27/20 14:40 03/27/20 14:40 03/27/20 14:40 Oxygen Flow Rate (L/min) 3 Oxygen Delivery Method Room Air Weight: 54.3 kg Body Mass Index (BMI) 15.6 Intake and Output for Last 24 Hours 03/25/20 03/26/20 03/27/20 23:59 23:59 23:59 Intake Total 5473.33 / 6813.33 7856.67 / 7856.67 2680.66 / 2680.66 Output Total 0 / 0 Balance 5473.33 / 6813.33 7856.67 / 7856.67 2680.66 / 2680.66 General: Alert, No apparent distress HEENT: Atraumatic, Normocephalic Microbiology Past 72 Hours 03/24/20 00:10 Stool Enteric Bacteriology - Final Laboratory Results 03/27/20 06:30: WBC 3.6 L, RBC 2.51 L, Hgb 7.7 L, Hct 23.3 L, MCV 92.8, MCH 30.7, MCHC 33.0, RDW Std Deviation 58.9 H, RDW Coeff of Emil 17.7 H, Plt Count 105 L, MPV 9.3 03/27/20 06:30: Sodium 137, Potassium 4.0, Chloride 113 H, Carbon Dioxide 18.0 L , Anion Gap 6, BUN 31 H, Creatinine 1.32 H, Estim Creat Clear Calc 57.71, Est GFR (MDRD) Af Amer 78, Est GFR (MDRD) Non-Af 64, BUN/Creatinine Ratio 23.5 H, Glucose 101, Calcium 7.6 L, Phosphorus 2.9, Magnesium 1.4 L, Total Bilirubin 0.40, AST 26, ALT 31, Alkaline Phosphatase 119 H, Total Protein 5.9 L, Albumin 2.2 L, Globulin 3.7, Albumin/Globulin Ratio 0.6 L Current Medications Acetaminophen (Tylenol) 650 mg PO Q6H PRN PRN PRN Reason: Pain Score 1-10/Temp > 100.7 F Dextrose (D50w Syringe) 0 gm IV X1 PRN; Protocol PRN Reason: Hypoglycemia Glucagon () 1 mg IM .X1 PRN PRN Reason: Hypoglycemia Pantoprazole Sodium 40 mg/ (Sodium Chloride) 110 mls @ 330 mls/hr IV Q12 [facility] Last Infusion: 03/27/20 10:20 Dose: Infused Documented by: Loperamide HCl (Imodium Liquid) 2 mg PO Q4H PRN PRN PRN Reason: DIARRHEA/LOOSE STOOLS Last Admin: 03/24/20 10:46 Dose: 2 mg Documented by: Ondansetron HCl (Zofran) 4 mg IV Q8H PRN PRN PRN Reason: NAUSEA/VOMITING Potassium Chloride (K-Dur) 40 meq PO BIDCM [facility] Last Admin: 03/27/20 09:58 Dose: 40 meq Documented by: Sodium Chloride () 10 - 40 ml IV UD PRN PRN Reason: SALINE FLUSH Last Admin: 03/27/20 10:02 Dose: 10 ml Documented by: Discharge Diet: No Restrictions Discharge Activity: Return to Normal Activity Call your doctor if you observe: Shortness of breath, Dizziness, Fainting spells, Chest pain, - Disposition: Home Minutes spent on discharge:: 35 Patient Condition:: Stable Medical Necessity - Tobacco Use Smoking Status: Never smoker Inpatient E&M: 76694 Disch Hosp
[2020-03-27 14:40] VITALS: BP 105/60; PULSE 61; RESP 15; TEMP 36.6; O2SAT 99
--- NOTE | 2020-03-27 15:14 | PHA.DC.MC ---
Pharmacy Service has performed discharge medication reconciliation and counseling for this patient. The patient was counseled on the following discharge medications and changes in medications for homegoing were reviewed. 1. MAGNESIUM OXIDE 2. KCL 3. PROTONIX 4. IMODIUM The Reason for Use, instructions for use, and potential side effects were reviewed for all new medications. The patient's questions regarding all of their medications were answered. The patient was able to verbally demonstrate an understanding of their discharge medications. Home Medications Ferric Carboxymaltose [Injectafer] 750 mg IV UD 09/23/19 Levothyroxine Sodium [Unithroid] 75 mcg PO DAILY 09/23/19 Folic Acid 1 mg PO DAILY 09/28/19 Loperamide [Imodium] 2 mg PO Q4H PRN PRN #60 cap 03/27/20 Magnesium Oxide [Mag-Ox 400] 400 mg PO BID #60 tab 03/27/20 Pantoprazole Sodium [Protonix] 40 mg PO DAILY #30 tab 03/27/20 Potassium Chloride [K-Dur] 40 meq PO DAILY #60 tab 03/27/20 The patient's discharge medication list was reviewed for discrepancies and discrepancies were resolved.
--- NOTE | 2020-03-28 14:46 | CASEMGMT ---
RN CM DC call. Attempted phone call, did not go through to patient. Dina VARGASN RN ACM
== END 2020-03-27 14:47 | disposition home or self-care (01) | DRG 254 ==
LOC: ED 14:47 → ICU 16:33 → PCU 03-24 15:17
PROVIDERS: Family Medicine; Internal Medicine; Internal Medicine Critical Care Medicine; Admitting Provider Student in an Organized Health Care Education/Training Program; Emergency Provider Emergency Medicine
DX: K91.2 Postsurgical malabsorption, not elsewhere classified (principal); E87.2 Acidosis; E87.6 Hypokalemia; E83.42 Hypomagnesemia; N17.9 Acute kidney failure, unspecified; D61.818 Other pancytopenia; E43 Unspecified severe protein-calorie malnutrition; E03.9 Hypothyroidism, unspecified; D51.9 Vitamin B12 deficiency anemia, unspecified; Z68.1 Body mass index [BMI] 19.9 or less, adult; Z71.3 Dietary counseling and surveillance; Z79.890 Hormone replacement therapy; Z91.19 Patient's noncompliance with other medical treatment and regimen; Z87.738 Personal history of other specified (corrected) congenital malformations of digestive system; Z87.2 Personal history of diseases of the skin and subcutaneous tissue; Z86.14 Personal history of Methicillin resistant Staphylococcus aureus infection
CPT/HCPCS: 36415; 36600; 71046; 80048; 80053; 80076; 81001; 82274; 82728; 82803; 83540; 83550; 83735; 84100; 84439; 84443; 84484; 85014; 85018; 85025; 85027; 86850; 86900; 86901; 86920; 87329; 87493; 87506; 93005; 97802; 97803; 99284; J7030; J7040; J7120; P9016; A4216

== ENCOUNTER 2020-03-31 09:45 | Emergency (ER) | payer MEDICAID, SELFPAY ==
[2020-03-23 18:40] VITALS: BMI 15.6
[2020-03-31] VITALS (7 sets, daily range): BP systolic 105–133; BP diastolic 74–85; PULSE 74–97; RESP 20–32; TEMP 36.6; O2SAT 98–100; BMI 15.7
--- NOTE | 2020-03-31 10:19 | ED.DCSUM_ITS ---
History of Present Illness Chief Complaint: Abn Labs Informant: Patient, Family Narrative: Is a 40-year-old male with a history of gastroschisis and short gut syndrome who was originally treated at [facility]. He would intermittently need TPN through the years. Most recently developed significant MSSA skin infections which required 30 days of antibiotics through a PICC line. This was done at [facility] in [place] where he was living. At discharge time his mom returned him home here to [place]. Patient was recently admitted here with metabolic acidosis due to bicarbonate loss secondary to substantial diarrhea. He had significant hypokalemia hypomagnesemia. He has been referred to Dr. Abelardo Castillo from [facility] and is waiting for appointment. He continues to have diarrhea though he states not that bad but mom states it is every hour. He states for the past 2 days he has felt short of breath. No cough. He denies any active skin infections. His body weight since discharge is gone from 112 to 118. The patient has also a history of anemia and was transfused several units recently. - Past Medical History (1) Diarrhea Status: Acute (2) Metabolic acidosis Status: Acute (3) Anemia Status: Chronic (4) B12 deficiency anemia Status: Chronic (5) Chronic GI bleeding Status: Chronic (6) Gastroschisis Status: Chronic (7) Hypothyroidism Status: Chronic (8) Iron deficiency Status: Chronic (9) Postresectional malabsorption syndrome Status: Chronic (10) Short bowel syndrome Status: Chronic (11) Thrombocytopenia Status: Chronic Past Medical History - Allergies and Home Meds Allergies/Adverse Reactions: Allergies erythromycin base Adverse Reaction (Severe, Verified 03/23/20 14:07) Vomiting Macrolide Antibiotics Adverse Reaction (Severe, Verified 03/23/20 14:07) Vomiting ALL ORAL ANTIBIOTICS Allergy (Uncoded 03/23/20 14:08) NEEDS FOLLOW-UP VIT K Allergy (Uncoded 03/23/20 14:08) Chest tightness Primary Care Physician: Care Physician,No Primary [Primary Care Provider] - Surgical History: - - Small bowel resection, debridement of previous staph in fections Smoking Status: Never smoker Review of Systems General: Denies: Chills, Fever, Sweats Eyes: Denies: Visual changes - bilaterally, Diplopia ENT: Denies: Rhinorrhea, Sore throat Cardiovascular: Denies: Chest pain, Palpitations Respiratory: Reports: Dyspnea. Denies: Cough, Dyspnea on exertion Gastrointestinal: Reports: Diarrhea. Denies: Abdominal pain, Nausea, Vomiting, Melena, Hematochezia Genitourinary: Denies: Dysuria, Hematuria, Frequency Musculoskeletal: Denies: Back pain, Extremity Pain Skin: Denies: Rash, Wounds Neurological: Denies: Headache, Weakness, Numbness Physical Exam Vital Signs/Narrative: Vital Signs Temp Pulse Resp BP Pulse Ox 03/31/20 09:46 98 F 97 20 H 133/76 H 98 Inital Vital Signs reviewed: Yes General: Well developed, Cachectic, No Acute Distress Head: Normocephalic, Atraumatic Eyes: Perrl, EOMI ENT: Moist mucous membranes, No rhinorrhea Neck: Supple, Nontender Cardiovascular: Regular rate, Regular rhythm, No murmurs Respiratory: CTA bilaterally, Chest nontender, - - Patient is tachypneic but not in distress Abdomen: Soft, Nontender, Nondistended, Normal bowel sounds Back: Nontender, Normal Inspection Extremities: Nontender, No edema Skin: Normal color, No rash, - - Healed surgical incisions consistent with his history of multiple MSSA infections Neurological: Alert, Oriented x3, Cranial nerves II-XII grossly intact, Normal Strength, Normal Sensation Psychological: Normal affect, Normal Mood Diagnostic/Tx/Re-eval Laboratory Last Values WBC 9.5 K/mm3 (4.4-11.0) 03/31/20 10:43 RBC 2.81 M/mm3 (4.6-6.2) L 03/31/20 10:43 Hgb 8.6 g/dL (13.0-16.5) L 03/31/20 10:43 Hct 28.0 % (40-54) L 03/31/20 10:43 MCV 99.6 fL (80-94) H D 03/31/20 10:43 MCH 30.6 pg (27.0-32.0) 03/31/20 10:43 MCHC 30.7 g/dL (32-36) L D 03/31/20 10:43 RDW Std Deviation 64.5 fl (35.1-43.9) H 03/31/20 10:43 RDW Coeff of Emil 17.5 % (11.6-14.6) H 03/31/20 10:43 Plt Count 58 K/mm3 (150-450) L 03/31/20 10:43 MPV 9.6 fl (6.2-12.0) 03/31/20 10:43 Immature Gran % (Auto) BEHAVIORAL SCIENTIST 03/31/20 10:43 Neut % (Auto) BEHAVIORAL SCIENTIST 03/31/20 10:43 Lymph % (Auto) BEHAVIORAL SCIENTIST 03/31/20 10:43 [place] % (Auto) BEHAVIORAL SCIENTIST 03/31/20 10:43 Eos % (Auto) BEHAVIORAL SCIENTIST 03/31/20 10:43 Baso % (Auto) BEHAVIORAL SCIENTIST 03/31/20 10:43 Absolute Neuts (auto) 7.5 X10^3/uL (2.0-7.7) 03/31/20 10:43 Absolute Lymphs (auto) 1.04 X10^3/uL (0.83-4.51) 03/31/20 10:43 Total Counted 100 (MANUAL DIFF) 03/31/20 10:43 Neutrophils % (Manual) 74 % (47-70) H 03/31/20 10:43 Band Neutrophils % 5 % (0-5) 03/31/20 10:43 Lymphocytes % (Manual) 11 % (19-41) L 03/31/20 10:43 Monocytes % (Manual) 2 % (0-10) 03/31/20 10:43 Metamyelocytes % 5 % (0-1) H 03/31/20 10:43 Myelocytes % 3 (0-0) H 03/31/20 10:43 Nucleated RBC % 0 % (0-5) 03/31/20 10:43 Diff Path Review January03/31/20 10:43 Platelet Estimate MOD DEC (ADEQ) 03/31/20 10:43 RBC Morphology NORM C+C NORMAL (NORM C&C) 03/31/20 10:43 Sodium 141 mmol/L (136-145) 03/31/20 10:43 Potassium 4.1 mmol/L (3.5-5.1) 03/31/20 10:43 Chloride 126 mmol/L (98-107) H 03/31/20 10:43 Carbon Dioxide 6.0 mmol/L (21.0-32.0) L* 03/31/20 10:43 Anion Gap 9 (5-15) 03/31/20 10:43 BUN 54 mg/dL (7-18) H 03/31/20 10:43 Creatinine 2.12 mg/dL (0.70-1.30) H 03/31/20 10:43 Estim Creat Clear Calc 33.01 ml/min 03/31/20 10:43 Est GFR (MDRD) Af Amer 45 mL/min (>60) L 03/31/20 10:43 Est GFR (MDRD) Non-Af 37 mL/min (>60) L 03/31/20 10:43 BUN/Creatinine Ratio 25.5 RATIO (10-20) H 03/31/20 10:43 Glucose 89 mg/dL (74-106) 03/31/20 10:43 Calcium 7.3 mg/dL (8.5-10.1) L 03/31/20 10:43 Magnesium 1.5 mg/dL (1.6-2.6) L 03/31/20 10:43 Total Bilirubin 0.30 mg/dL (0.20-1.00) 03/31/20 10:43 Direct Bilirubin 0.09 mg/dL (0.00-0.30) 03/31/20 10:43 AST 30 U/L (15-37) 03/31/20 10:43 ALT 32 U/L (16-61) 03/31/20 10:43 Alkaline Phosphatase 137 U/L (45-117) H 03/31/20 10:43 Total Protein 7.3 g/dL (6.4-8.2) 03/31/20 10:43 Albumin 3.0 g/dL (3.2-5.0) L 03/31/20 10:43 Globulin 4.3 g/dL (2.2-4.2) H 03/31/20 10:43 Lipase 1820 U/L (73-393) H 03/31/20 10:43 - Medical Decision Making pH 7.07 with a measured bicarb of 2.8. Patient will receive 3 L boluses of lactated Ringer's. He will also received 2 g of magnesium. I reviewed the patient's prior hospitalization and agree with the patient's need to be transferred to tertiary care facility where they have GI coverage. He will most likely require evaluation for TPN. I spoke with the mom and gave her several options. She has chose for us to contact [facility]. I have contacted them and we are awaiting acceptance. ED Disposition - Plan for ED Patient: Diagnosis: Metabolic acidosis, Anemia, EWA (acute kidney injury), Postresectional malabsorption syndrome, Thrombocytopenia Referrals: Care Physician,No Primary [Primary Care Provider] -
[2020-03-31 10:52] LABS: Basophil# 0.07 X10^3/uL; Eosinophil# 0.64 X10^3/uL; Hemoglobin 8.6 g/dL (13.0-16.5); Mean Corp Hgb Conc 30.7 g/dL (32-36); Mean Corpuscular Hgb 30.6 pg (27.0-32.0); Mean Corpuscular Volume 99.6 fL (80-94); Mean Platelet Vol. 9.6 fl (6.2-12.0); Monocyte# 0.51 X10^3/uL; NRBC Flagged by Analyzer 0 % (0-5); POSITIVE COUNT YES; POSITIVE MORPHOLOGY YES; Platelet Count 58 K/mm3 (150-450); RBC Distribution Width CV 17.5 % (11.6-14.6); RBC Distribution Width SD 64.5 fl (35.1-43.9); Red Blood Count 2.81 M/mm3 (4.6-6.2); White Blood Count 9.5 K/mm3 (4.4-11.0)
[2020-03-31 10:57] LABS: Differential Indicated SCAN CRITERIA MET
[2020-03-31] MEDS: Lactated Ringers 1,000 ML 999 ML IV ×3 (10:58→15:38)
[2020-03-31 11:20] LABS: AST(SGOT) 30 U/L (15-37); Alanine Aminotransfer ALT/SGPT 32 U/L (16-61); Alkaline Phosphatase 137 U/L (45-117); Anion Gap 9 (5-15); BUN 54 mg/dL (7-18); BUN/Creat Ratio 25.5 RATIO (10-20); Bilirubin, Direct 0.09 mg/dL (0.00-0.30); Calcium,Total 7.3 mg/dL (8.5-10.1); Chloride 126 mmol/L (98-107); Creatinine, Serum 2.12 mg/dL (0.70-1.30); EST Glomerular Filtration Rate 37 mL/min (>60); Est Glom Filt Rate - Afr Amer 45 mL/min (>60); Estimated Creatinine Clearance 33.01 ml/min; Globulin 4.3 g/dL (2.2-4.2); Glucose 89 mg/dL (74-106); Lipase 1820 U/L (73-393); Magnesium 1.5 mg/dL (1.6-2.6); Potassium 4.1 mmol/L (3.5-5.1); Protein, Total 7.3 g/dL (6.4-8.2); Sodium Level 141 mmol/L (136-145)
[2020-03-31 11:50] LABS: Lymphocyte 11 % (19-41); Metamyelocyte 5 % (0-1); Monocyte 2 % (0-10); Myelocyte 3 (0-0); Neutrophil-Band 5 % (0-5); Neutrophil-Segmented 74 % (47-70); Platelet Estimate MOD DEC (ADEQ); Red Cell Morphology NORM C+C NORMAL (NORM C&C); Total Cells Counted 100 (MANUAL DIFF)
[2020-03-31 11:51] LABS: Scan Smear per Review Criteria MANUAL DIFF
[2020-03-31 11:52] LABS: Absolute Lymphocyte Count 1.04 X10^3/uL (0.83-4.51); Absolute Neutrophil Count 7.5 X10^3/uL (2.0-7.7); Lymphocyte # 1.04 X10^3/ul (4.0); Neutrophil # 7.48 X10^3/uL (2.7-7.7)
[2020-03-31] MEDS: Lactated Ringers 1,000 ML 200 ML IV (12:03)
[2020-03-31] MEDS: Sodium Bicarbonate 8.4% 50 ML Syringe 50 MEQ IV (14:48)
[2020-03-31 15:45] LABS: Allen Test POS; Blood Gas Specimen Type ART; O2 Delivery Device Room Air; SITE R RADIAL
[2020-03-31 15:46] LABS: Time Given 1342; pH 7.07 (7.35-7.45)
[2020-03-31 15:47] LABS: Bicarbonate 2.8 mmol/L (22-26); PO2 137 mmHG (75-100); pCO2 9.7 mmHg (35-45)
[2020-03-31 15:48] LABS: Base Excess -27 mmol/L (-2 to +2); SO2 98 % (95-99); Total Carbon Dioxide < 5 mmol/L
--- NOTE | 2020-03-31 16:33 | ED.RN ---
PER MELISSA WITH [facility]; ICU IS FULL, WE ARE STILL WAITING ON A BED
[2020-04-03 12:52] LABS: Pathologist Review Reviewed
== END 2020-03-31 20:17 | disposition home or self-care (01) ==
PROVIDERS: Emergency Provider Emergency Medicine
DX: E87.2 Acidosis (principal); D64.9 Anemia, unspecified; N17.9 Acute kidney failure, unspecified; K91.2 Postsurgical malabsorption, not elsewhere classified; D69.6 Thrombocytopenia, unspecified; E03.9 Hypothyroidism, unspecified
CPT/HCPCS: 36600; 80048; 80076; 82803; 83690; 83735; 85025; 99285; J7120; A4216

== ENCOUNTER 2022-03-21 12:20 | Emergency (ER) | payer MEDICAID, SELFPAY ==
[2022-03-21 12:20] VITALS: BP 110/74; PULSE 76; RESP 14; TEMP 36.6; O2SAT 100; BMI 19.3
--- NOTE | 2022-03-21 12:34 | EDS_ITS ---
HPI History of Present Illness Chief Complaint: Abn Labs Detail of Chief Complaint: Low bicarb and requesting infusion of bicarbonate Informant: patient Narrative Narrative: Patient presents to the emergency department stating that he has a low bicarb level and was advised by his network field engineer to be seen in the emergency department for a bicarb infusion. 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 Patient gets bicarb infusions weekly. He had his bicarb level checked 2 days ago and it was 10. Patient has chronic watery stools. He currently denies feeling lightheaded or dizzy. Patient was recently admitted to [facility] for staph infection in his groin. [facility] Medical History (Updated 03/21/22 @ 14:[address] Antionette Ricardo, DO) B12 deficiency anemia Gastroschisis Iron deficiency anemia Short bowel syndrome Home Medications ferric carboxymaltose 750 mg IV UD supplement 09/23/19 [History Last Taken 03/08/20] levothyroxine 75 mcg tablet 75 mcg PO DAILY thyroid 09/23/19 [History Last Taken 03/21/20] folic acid 1 mg tablet 1 mg PO DAILY supplement 09/28/19 [History Last Taken 03/21/20] loperamide 2 mg capsule 2 mg PO Q4H PRN PRN Diarrhea #60 caps 03/27/20 [Rx Last Taken Unknown] magnesium oxide 400 mg (241.3 mg magnesium) tablet 400 mg PO BID #60 tabs 03/27/20 [Rx Last Taken Unknown] pantoprazole 40 mg tablet,delayed release 40 mg PO DAILY #30 tabs 03/27/20 [Rx Last Taken Unknown] potassium chloride 20 mEq tablet,extended release(part/cryst) 40 meq PO DAILY #60 tabs 03/27/20 [Rx Last Taken Unknown] Allergy/AdvReac Type Severity Reaction Status Date / Time erythromycin base AdvReac Severe Vomiting Verified 03/21/22 12:23 Macrolide Antibiotics AdvReac Severe Vomiting Verified 03/21/22 12:23 ALL ORAL ANTIBIOTICS Allergy NEEDS Uncoded 03/21/22 12:23 FOLLOW-UP VIT K Allergy Chest Uncoded 03/21/22 12:23 tightness Family History (Updated 09/28/19 @ 10:11 by Cintia Ramos) Other No pertinent family history Surgical History (Updated 03/23/20 @ 14:[address] Ruperto Velazquez, DO) History of abdominal surgery Social History Smoking Status: Never smoker ROS ROS ED ROS Narrative Abnormal labs Review of Systems ROS Unobtainable: other Constitutional Constitutional ED: Reports lethargy; Denies chills, fever(s), sweats or weight loss Eyes Eyes: Denies blurry vision, change in vision or diplopia ENT ENT ED: Denies rhinorrhea or sore throat Cardiovascular Cardiovascular: Denies chest pain, orthopnea or racing heartbeat Respiratory/Chest Respiratory/Chest: Reports dyspnea and dyspnea on exertion; Denies cough, orthopnea or sputum Gastrointestinal Gastrointestinal: Reports diarrhea; Denies abdominal pain, nausea or vomiting Genitourinary Genitourinary ED: Denies dysuria, hematuria or urinary frequency Musculoskeletal Musculoskeletal: Denies arthralgias, back pain, myalgias or neck pain Integumentary Denies abscess, Abrasions or rash Neurologic Neurologic: Denies headache(s) or weakness Psychiatric Psychiatric: Denies anxiety, depression or suicidal thoughts Endocrine Endocrinology: Denies polydipsia, polyphagia or polyuria Hematologic/Lymphatic Hematologic/Lymphatic: Denies easy bleeding, easy bruising or lymphadenopathy Allergic/Immunologic Allergic/Immunologic ED: Denies mouth swelling, tongue swelling or urticaria EXAM Physical Exam Const Vital Signs: 03/21/22 12:20 Temperature 97.9 F Temperature Source Temporal Pulse Rate 76 Respiratory Rate 14 Blood Pressure 110/74 Blood Pressure Mean 86 Pulse Ox 100 Oxygen Delivery Method Room Air Positive well nourished and well developed General Appearance ED: well developed and NAD HEENT Reports TM's clear and moist mucous membranes normocephalic and atraumatic; Negative for trauma or tenderness Tympanic Membrane ED: Yes TM's clear Eyes PERRL and EOMs intact bilaterally General Eye ED: Negative for pale conjunctiva or scleral icterus Neck no lymphadenopathy, supple and no JVD General: Negative for tenderness Chest Wall inspection of chest normal and palpation of chest normal Chest: Negative for tenderness Resp normal respiratory effort and clear to auscultation bilaterally Effort and Inspection: Negative for respiratory distress or pain with movement Auscultation: Negative for rhonchi, wheezes or diminished lung sounds Cardio regular rate, regular rhythm, S1 normal heart sound, S2 normal heart sound and no murmurs Peripheral Pulses: pulses 2+ throughout GI normal to inspection, nondistended, normoactive bowel sounds, soft to palpation, non-tender, non-distended and no masses Back/Spine no CVA tenderness and no thoracic nor lumbar tenderness Extremity normal to inspection General Extremety ED: Negative for edema General Extremity: Negative for edema Neuro oriented x3, CN's II-XII intact bilaterally, no sensory deficits noted and gait normal Sensorium / Orientation: awake, alert, oriented to person, oriented to place and oriented to time Motor Exam: strength 5/5 throughout and strength abnormal Psych mental status grossly normal Skin no rashes or lesions noted and no wounds MDM MDM MDM Narrative Medical decision making narrative: IV line established on arrival. Patient had labs ordered that showed a CO2 of 15 as well as a potassium of 3.5 and magnesium of 1.7. I discussed with Dr. Wakefield's office the patient's results. The parameters they wanted were a CO2 of at least 15 and normal magnesium and potassium which she currently has. Patient feels well and otherwise would prefer to just go home and do his daily infusion of bicarb as he states that a CO2 of 15 is as high as he has ever been and that was when he was getting bicarb daily in the hospital. At this point I feel patient can be safely discharged to home. Lab Data Attestation: I reviewed the patient's lab results. Labs: Laboratory Results - last 24 hr 03/21/22 03/21/22 12:45 12:45 WBC 2.8 L RBC 3.95 L Hgb 10.3 L Hct 35.2 L MCV 89.1 MCH 26.1 L MCHC 29.3 L RDW Std Deviation 67.7 H RDW Coeff of Emil 20.8 H Plt Count 52 L MPV 9.2 Immature Gran % (Auto) 0.400 Neut % (Auto) 66.5 Lymph % (Auto) 18.0 L Polk % (Auto) 8.6 Eos % (Auto) 5.4 H Baso % (Auto) 1.1 H Absolute Neuts (auto) 1.9 L Absolute Lymphs (auto) 0.50 L Nucleated RBC % 0 Differential Comment SCANNED Diff Path Review May foll Hypochromasia 2+ Anisocytosis 2+ Sodium 140 Potassium 3.5 Chloride 118 H Carbon Dioxide 15.0 L Anion Gap 7 BUN 18 Creatinine 1.34 H Estim Creat Clear Calc 62.83 Est GFR (MDRD) Af Amer 76 Est GFR (MDRD) Non-Af 62 BUN/Creatinine Ratio 13.4 Glucose 94 Calcium 8.4 L Magnesium 1.7 Discharge Plan Triage Chief Complaint: Abn Labs ED Provider: Antionette Ricardo Dx/Rx/DC Orders Clinical Impression: Low serum bicarbonate Instructions: ED Screening Exam Medical Nonurgent Prescriptions: No Action levothyroxine 75 MCG tablet 75 mcg PO DAILY ferric carboxymaltose 750 MG/15 ML solution 750 mg IV UD Rx Instructions: every two weeks folic acid 1 MG tablet 1 mg PO DAILY potassium chloride 20 MEQ tablet 40 meq PO DAILY Qty: 60 0RF loperamide 2 MG capsule 2 mg PO Q4H PRN PRN (Reason: Diarrhea) Qty: 60 0RF pantoprazole 40 MG tablet 40 mg PO DAILY Qty: 30 0RF magnesium oxide 400 MG tablet 400 mg PO BID Qty: 60 0RF Primary Care Provider: Ramo Vieyra Referrals: Care Physician,No Primary [NON-STAFF] - Activity Restrictions/Additional Instructions: Follow-up with your network field engineer as instructed. Disposition Disposition: Home, Self Care
[2022-03-21 13:04] LABS: Absolute Neutrophil Count 1.9 X10^3/uL (2.0-7.7); Basophil# 0.03 X10^3/uL; Basophil% 1.1 % (0-1); Eosinophil# 0.15 X10^3/uL; Eosinophils% 5.4 % (0-5); Hematocrit 35.2 % (40-54); Hemoglobin 10.3 g/dL (13.0-16.5); Mean Corp Hgb Conc 29.3 g/dL (32-36); Mean Corpuscular Hgb 26.1 pg (27.0-32.0); Mean Corpuscular Volume 89.1 fL (80-94); Mean Platelet Vol. 9.2 fl (6.2-12.0); Monocyte# 0.24 X10^3/uL; Monocyte% 8.6 % (0-10); NRBC Flagged by Analyzer 0 % (0-5); Neutrophil # 1.85 X10^3/uL (2.7-7.7); Neutrophil % 66.5 % (47-70); POSITIVE COUNT YES; POSITIVE DIFFERENTIAL YES; POSITIVE MORPHOLOGY YES; Platelet Count 52 K/mm3 (150-450); RBC Distribution Width CV 20.8 % (11.6-14.6); RBC Distribution Width SD 67.7 fl (35.1-43.9); Red Blood Count 3.95 M/mm3 (4.6-6.2); White Blood Count 2.8 K/mm3 (4.4-11.0)
[2022-03-21 13:09] LABS: Differential Indicated SCAN CRITERIA MET
[2022-03-21 13:15] LABS: Anion Gap 7 (5-15); BUN 18 mg/dL (7-18); BUN/Creat Ratio 13.4 RATIO (10-20); Calcium,Total 8.4 mg/dL (8.5-10.1); Chloride 118 mmol/L (98-107); Creatinine, Serum 1.34 mg/dL (0.70-1.30); EST Glomerular Filtration Rate 62 mL/min (>60); Est Glom Filt Rate - Afr Amer 76 mL/min (>60); Estimated Creatinine Clearance 62.83 ml/min; Glucose 94 mg/dL (74-106); Magnesium 1.7 mg/dL (1.6-2.6); Potassium 3.5 mmol/L (3.5-5.1); Sodium Level 140 mmol/L (136-145)
[2022-03-21 13:32] LABS: Anisocytosis 2+; Differential Comment SCANNED; Hypochromasia 2+
--- NOTE | 2022-03-21 13:58 | NURSING ---
CALLING DR WELLER, GASTROENTERITIS [phone]
[2022-03-22 11:16] LABS: Pathologist Review Reviewed
== END 2022-03-21 14:42 | disposition home or self-care (01) ==
PROVIDERS: Emergency Provider Emergency Medicine; PCP Family Medicine; Visit Provider Emergency Medicine
DX: E87.8 Other disorders of electrolyte and fluid balance, not elsewhere classified (principal); K91.2 Postsurgical malabsorption, not elsewhere classified
CPT/HCPCS: 80048; 83735; 85025; 99282

== ENCOUNTER 2022-11-30 16:21 | Emergency (ER) | payer MEDICARE, MEDICAID, SELFPAY ==
[2022-11-30 16:22] VITALS: BP 129/86; PULSE 85; RESP 14; TEMP 36.6; O2SAT 100; BMI 22.4
--- NOTE | 2022-11-30 16:44 | CT_ITS ---
STUDY: CT ABDOMEN AND PELVIS WITHOUT CONTRAST REASON FOR EXAM: Male, 42 years old. Left flank pain. History of kidney stones. History of gastroschisis and resection of the majority of the small bowel. RADIATION DOSAGE (If Supplied By Facility): CTDIvol = ( 7.57 ) mGy, DLP = ( 390.72 ) mGycm TECHNIQUE: Transaxial images were obtained from the dome of the diaphragm to the symphysis pubis without oral contrast, and without intravenous contrast. Sagittal and coronal images were reconstructed. Individualized dose optimization techniques were used for this CT. COMPARISON: None. FINDINGS: The visualized lung bases are unremarkable. The visualized portions of the heart are within normal limits. The liver is enlarged. There is no focal mass. Prominent intrahepatic pulmonary veins. Normal gallbladder and biliary ductal system. The spleen is markedly enlarged. Normal pancreas. Normal bilateral adrenal glands. The kidneys are of normal size and cortical thickness. There is bilateral hydronephrosis, left greater than right with mild prominence of the ureter, again greater on the left. Normal visualized stomach. Marked dilatation of the visualized small bowel with air-fluid levels. Bob fluid dilatation of the colon. Question mild wall thickening of the sigmoid colon. Surgical changes are seen in the right lower quadrant. The appendix is not visualized. Normal abdominal aorta. Normal inferior vena cava. Normal retroperitoneum. Urinary bladder is collapsed. There is a 2 mm calculus in the expected position of the left UVJ. There are central calcifications in a normal-sized prostate. No pelvic lymphadenopathy. No free air or free fluid is seen within the cavity. Normal abdominal wall. Normal osseous structures. CT/Abdomen/Pelvis without Cont IMPRESSION: 1. Left UVJ calculus with obstructive uropathy. 2. Distention of small and small bowel and proximal colon. The sigmoid colon is of normal luminal dimension with mild wall thickening. Question colitis. 3. Hepatosplenomegaly. 4. Left UVJ calculus with obstructive uropathy. 5. Mild fullness of the right kidney and ureter without visualized filling defect. Electronically Signed: Jose Antonio Mendoza DO at 17:27 EDT ,
--- NOTE | 2022-11-30 16:44 | EX.ED.GUMALE ---
HPI History of Present Illness Chief Complaint: Flank Pain Detail of Chief Complaint: Left flank pain. History of kidney stones. Informant: patient Pain Onset: Today Context: Gradual Onset Timing: Continuous Current Severity: Moderate Maximum Severity: Moderate Narrative Narrative: 42-year-old male history of multiple prior kidney stones. History of prior stents and lithotripsy. Also history of chronic anemia. States today he developed left flank pain. Consistent with the prior kidney stones. Denies any nausea or vomiting. No diarrhea or fever. Pains been ongoing for last several hours. Prior similar symptoms: Yes Recent Illness/Hospitalization: No PFSH PFSH Medical History B12 deficiency anemia Gastroschisis Iron deficiency anemia Short bowel syndrome Allergy/AdvReac Type Severity Reaction Status Date / Time phytonadione (vitamin K1) Allergy Chest Verified 11/30/22 16:22 tightness erythromycin base AdvReac Severe Vomiting Verified 11/30/22 16:22 Macrolide Antibiotics AdvReac Severe Vomiting Verified 11/30/22 16:22 ALL ORAL ANTIBIOTICS Allergy NEEDS Uncoded 11/30/22 16:22 FOLLOW-UP Family History Other No pertinent family history Surgical History History of abdominal surgery Social History Smoking Status: Never smoker ROS ROS ED ROS Narrative Atraumatic left flank pain. Review of Systems ROS Unobtainable: Denies due to encephalopathy Constitutional Constitutional ED: Denies chills, fever(s), subjective or sweats Eyes Eyes: Denies blurry vision ENT ENT ED: Denies ear pain Cardiovascular Cardiovascular: Denies chest pain Respiratory/Chest Respiratory/Chest: Denies cough or dyspnea Gastrointestinal Gastrointestinal: Denies abdominal pain, constipation, diarrhea, melena, nausea or vomiting Genitourinary Genitourinary ED: Denies dysuria Musculoskeletal Musculoskeletal: Reports back pain; Denies arthralgias Integumentary Denies abscess Neurologic Neurologic: Denies headache(s) Psychiatric Psychiatric: Denies anxiety or depression Endocrine Endocrinology: Denies polydipsia Hematologic/Lymphatic Hematologic/Lymphatic: Denies easy bleeding Allergic/Immunologic Allergic/Immunologic ED: Denies mouth swelling EXAM Physical Exam Narrative Exam Narrative: 42-year-old male vital signs stable afebrile. As I walk in the room he is standing up beside the bed complain left flank pain. H EENT exam unremarkable. Neck nontender. No lymphadenopathy. Lungs clear to auscultation bilaterally. Heart regular rhythm rate about 85 no murmur. Chest were nontender. Abdomen soft nontender. Back nontender. No CVA tenderness. Moving all 4 extremities. Neurovascular intact. Neurologically is awake and alert with no focal motor deficits. Const Vital Signs: 11/30/22 16:22 11/30/22 18:41 Temperature 98 F Temperature Source Temporal Pulse Rate 85 Respiratory Rate 14 18 Blood Pressure 129/86 H Blood Pressure Mean 100 Pulse Ox 100 Oxygen Delivery Method Room Air Room Air Positive well nourished and well developed; Negative for obese, cachectic, contractures or unkempt General Appearance ED: well developed and NAD; Negative for unkempt, cachectic, contractures or pallor Nutritional Appearance: Negative for cachectic or obese HEENT Reports moist mucous membranes; Denies dry mucous membranes normocephalic and atraumatic; Negative for trauma Mouth ED: No dry mucous membranes Mouth: No dry mucous membranes Eyes PERRL and EOMs intact bilaterally General Eye ED: Negative for pale conjunctiva or scleral icterus Neck no lymphadenopathy, supple and no JVD General: Negative for tenderness Resp normal respiratory effort and clear to auscultation bilaterally Effort and Inspection: Negative for retractions Auscultation: Negative for rales, rhonchi or wheezes Cardio regular rate, regular rhythm, S1 normal heart sound, S2 normal heart sound and no murmurs Rate: Negative for bradycardia Rhythm: Negative for abnormal rhythm Heart Sounds: Negative for other GI non-tender, non-distended and no masses Inspection: Negative for abdominal distention Auscultation: normoactive bowel sounds Palpation: soft; Negative for tender or guarding no CVA tenderness Bladder / Kidney Exam: No CVA tenderness Back/Spine no CVA tenderness General Back: Negative for CVA tenderness Cervical Spine: Negative for cervical spine tenderness Thoracic Spine / Upper Back: Negative for thoracic spinal tenderness Lumbar Spine / Lower Back: Negative for lumbar spinal tenderness Extremity normal to inspection General Extremety ED: Negative for edema or pulses abnormal General Extremity: Negative for edema or pulses abnormal Neuro oriented x3, CN's II-XII intact bilaterally, moves all extremities and no focal motor deficits Sensorium / Orientation: alert, oriented to person, oriented to place and oriented to time; Negative for orientation impaired or confused Motor Exam: strength 5/5 throughout Psych mental status grossly normal Appearance: Negative for unkempt Attitude: No agitated Mood & Affect: Negative for depressed, anxious or tearful Thought Process: normal thought process Thought Content: normal thought content Attention / Concentration: Negative for other Skin General Skin Exam: Negative for jaundice or pallor Lesions: no lesions Rashes: no rashes Trauma: Negative for abrasion or laceration MDM MDM MDM Narrative Medical decision making narrative: 42-year-old male history of kidney stones and left flank pain. CAT scan and chemistries and urinalysis to be obtained. To be given Toradol for pain. Reassess. Clinically I think this is a kidney stone. I went back into reevaluate the patient discussed with him his test results and he left prior to being discharged or his work-up being completed. I will attempt to call him via phone. Left a message on the patient's cell phone. Lab Data Attestation: I reviewed the patient's lab results. Lab results narrative: Chemistries normal gap is 6 normal BUN of 15 creatinine is elevated at 1.85. His creatinine has been as high as 2.1 before. Glucose 122. Urine shows 50 occult blood no nitrates. No white nor red cells. No bacteria. Labs: Laboratory Results - last 24 hr 11/30/22 11/30/22 16:50 16:56 Sodium 138 Potassium 3.8 Chloride 110 H Carbon Dioxide 22.0 Anion Gap 6 BUN 15 Creatinine 1.85 H Estim Creat Clear Calc 52.62 Est GFR (MDRD) Af Amer 52 L Est GFR (MDRD) Non-Af 43 L BUN/Creatinine Ratio 8.1 L Glucose 122 H Calcium 8.9 Urine Color Yellow Urine Clarity Clear Urine pH 5.0 Ur Specific [place] 1.025 Urine Protein 30 H Urine Glucose (UA) Normal Urine Ketones Negative Urine Occult Blood 50 H Urine Nitrite Negative Urine Bilirubin Negative Urine Urobilinogen Normal Ur Leukocyte Esterase Negative Urine RBC 0-5 SEEN Urine WBC 0 SEEN Ur Squamous Epith Cells 0 SEEN Urine Bacteria 0 SEEN Urine Mucus 0 SEEN Urine Yeast RARE Radiography Diagnostic Testing: Clinical Impression(s) from Imaging Studies Abdomen/Pelvis CT 11/30/22 16:44 IMPRESSION: 1. Left UVJ calculus with obstructive uropathy. 2. Distention of small and small bowel and proximal colon. The sigmoid colon is of normal luminal dimension with mild wall thickening. Question colitis. 3. Hepatosplenomegaly. 4. Left UVJ calculus with obstructive uropathy. 5. Mild fullness of the right kidney and ureter without visualized filling defect. Electronically Signed: Jose Antonio Mendoza DO at 17:27 EDT Reading Location ID and State: [address] [place] [address] Tel [phone], Service support , Discharge Plan Triage Chief Complaint: Flank Pain ED Provider: Kevin Whitmore Dx/Rx/DC Orders Clinical Impression: Acute flank pain, Calculus of distal left ureter, Chronic renal insufficiency, Anemia in chronic illness Primary Care Provider: Ramo Vieyra Referrals: Ramo Vieyra MD [[facility]] - Disposition Disposition: Elop[facility] Discharge Date/Time: 11/30/22 19:30
[2022-11-30] MEDS: Ketorolac 30 MG/ML Syringe IV (16:51)
[2022-11-30 16:55] LABS: Bacteria 0 SEEN /hpf (None Seen); Mucous, Urine 0 SEEN /hpf (<or=2+); Squamous Epithelial Cells - UA 0 SEEN /hpf (0-5); White Blood Cells 0 SEEN /hpf (0-5)
[2022-11-30 16:56] LABS: Color, Urine Yellow (Yellow); Glucose, Dipstick Normal (Normal); Ketone-Dipstick Negative (Negative); Leukocyte Esterase-Dipstick Negative /ul (Negative); Nitrite-Dipstick Negative (Negative); Occult Blood-Urine 50 /ul (Negative); Protein-Dipstick 30 mg/dl (Negative); Specific Gravity, Urine 1.025 (1.002-1.030); Urine Bilirubin Dipstick Negative (Negative); Urine Clarity Clear (Clear); Urine Urobilinogen Normal (Normal)
[2022-11-30 17:26] LABS: Anion Gap 6 (5-15); BUN 15 mg/dL (7-18); BUN/Creat Ratio 8.1 RATIO (10-20); Calcium,Total 8.9 mg/dL (8.5-10.1); Chloride 110 mmol/L (98-107); Creatinine, Serum 1.85 mg/dL (0.70-1.30); EST Glomerular Filtration Rate 43 mL/min (>60); Est Glom Filt Rate - Afr Amer 52 mL/min (>60); Estimated Creatinine Clearance 52.62 ml/min; Glucose 122 mg/dL (74-106); Potassium 3.8 mmol/L (3.5-5.1); Sodium Level 138 mmol/L (136-145)
[2022-11-30 17:32] LABS: Red Blood Cells-Urine 0-5 SEEN /hpf (0-5); Yeast-Urine RARE /hpf (None Seen)
[2022-11-30 18:41] VITALS: RESP 18
--- NOTE | 2022-11-30 19:25 | ED.RN ---
THIS RN WENT TO GO CHECK AND PT AND PT NOT IN ROOM AND GOWN ON BED. PT SEEN LEAVING ER DEPARTMENT BY OTHER NURSES. PT PORT ACCESSED UPON ARRIVAL AND REMAINS ACCESSED DUE TO ELOPEMENT. DR MARIE MADE AWARE.
== END 2022-11-30 19:30 | disposition left against medical advice (07) ==
PROVIDERS: Emergency Provider Emergency Medicine; PCP Family Medicine; Visit Provider Emergency Medicine
DX: N20.1 Calculus of ureter (principal); N18.9 Chronic kidney disease, unspecified; D63.1 Anemia in chronic kidney disease; Z87.442 Personal history of urinary calculi
CPT/HCPCS: 36591; 74176; 80048; 81001; 96374; 99282; A4216

== ENCOUNTER 2025-07-18 10:54 | Emergency (ER) | payer MEDICARE, MEDICAID, SELFPAY ==
[2025-07-18 10:54] VITALS: BP 98/67; PULSE 79; RESP 16; TEMP 36.6; O2SAT 100; BMI 18.3
== END 2025-07-18 11:20 | disposition left against medical advice (07) ==
LOC: ED 11:22
PROVIDERS: PCP Family Medicine
DX: Z53.21 Procedure and treatment not carried out due to patient leaving prior to being seen by health care provider (principal)